=== PATIENT | female | born 1985 | race African-American/Black ===

== ENCOUNTER 2016-07-08 16:12 | Emergency (ER) ==
[2016-07-08 16:19] VITALS: BP 136/78; TEMP 98.5; BMI 40.6
--- NOTE | 2016-07-08 16:48 | ED.PDOC ---
General ED Provider: Dr. MANFRED CACERES Chief Complaint: Cough Stated Complaint: Cough; sore throat, bilateral ear pain. Time Seen by Physician: 16:30 Mode of Arrival: Walk-In Information Source: Patient [facility] and Triage Documentation Reviewed and Agree: Yes Review of Systems - Review Of Systems Constitutional: Reports: Malaise Ears, Nose, Mouth, Throat: Reports: Ear pain Respiratory: Reports: Cough Cardiac: Reports: No symptoms GI: Reports: No symptoms : Reports: No symptoms Musculoskeletal: Reports: No symptoms All Other Systems: Reviewed and Negative Past Medical History - Past Medical History Previously Healthy: Yes Endocrine: Reports: None Cardiovascular: Reports: None Respiratory: Reports: Asthma, Other (throat closes with tmp-sulf). Denies: Pneumonia (PLEURISY IN PAST) Hematological: Reports: Anemia Gastrointestinal: Reports: None Genitourinary: Reports: None Neuro/Psych: Reports: Anxiety, Depression Musculoskeletal: Reports: Other (SCOLIOSIS) Cancer: Reports: None Last Menstrual Period: ESSURE Other Pertinent Past Medical History: anemia asthma depr anx scol hives throat with tmpsulf - Surgical History General Surgical History: Reports: None - Family History Family History: Reports: Unknown - Social History Smoking Status: Former smoker Hx Substance Use: No Alcohol Screening: None Physical Exam - Physical Exam Appearance: Ill-appearing Ill-appearing: Moderate (Obvious discomfiture - sore throat - ear pain with swallowing) Re-Evaluation - Re-Evaluation Time of Re-Evaluation: 18:20 Status: Unchanged Vital Signs Stable: Yes Appearance: Other (Obviously uncomfortable; TMs reexamined - Left slightly bluish color) Skin: Warm and Dry Neuro: Alert and Oriented X3 Critical Care Note - Critical Care Note Total Time (mins): 25 Course - Course Hematology/Chemistry: 07/08/16 17:07 07/08/16 17:07 Orders, Labs, Meds: Lab Review 07/08/16 07/08/16 17:03 17:07 WBC 10.90 H RBC 4.82 Hgb 13.4 Hct 40.0 MCV 83.0 MCH 27.8 MCHC 33.5 RDW Coeff of Carlie 13.9 Plt Count 257 Immature Gran % (Auto) 0.4 Neut % (Auto) 58.7 Lymph % (Auto) 26.2 [place] % (Auto) 12.3 H Eos % (Auto) 2.1 Baso % (Auto) 0.3 Immature Gran # (Auto) 0.0 Neut # 6.4 Lymph # 2.9 [place] # 1.3 Eos # 0.2 Baso # 0.0 Sodium 140 Potassium 3.6 Chloride 106 Carbon Dioxide 24 Anion Gap 13.6 BUN 10 Creatinine 1.00 Estimated GFR (MDRD) 78.00 BUN/Creatinine Ratio 10.00 Glucose 105 Calcium 9.1 Total Bilirubin 0.22 AST 15 ALT 21 Alkaline Phosphatase 103 H Total Protein 6.9 Albumin 3.4 Globulin 3.5 Albumin/Globulin Ratio 0.97 Influenza A (Rapid) Negative Influenza B (Rapid) Negative Orders Category Date Time Status CBC W/ AUTO DIFF Stat LAB 07/08/16 17:07 Completed COMPREHENSIVE METABOLIC PANEL Stat LAB 07/08/16 17:07 Completed FLU A & B RAPID TEST [RAPID FLU A/B] Stat LAB 07/08/16 17:03 Completed MOLECULAR GROUP A STREP Stat LAB 07/08/16 17:03 Results STREP SCREEN Stat LAB 07/08/16 17:03 Results Azithromycin [Zithromax] MEDS 07/08/16 18:39 Discontinued 500 mg PO ONCE STA Ondansetron HCl/Pf [Zofran 4 mg/2 ml] MEDS 07/08/16 16:54 Discontinued 4 mg IVP ONCE STA Sodium Chloride 0.9% [Sodium Chloride] 1,000 ml MEDS 07/08/16 16:53 Discontinued IV BOLUS Medications Discontinued Medications Generic Name Dose Route Start Last Admin Trade Name Freq PRN Reason Stop Dose Admin Azithromycin 500 mg 07/08/16 18:39 07/08/16 18:48 Zithromax PO 07/08/16 18:40 500 mg ONCE STA Administration Sodium Chloride 1,000 mls @ 1,000 mls/hr 07/08/16 16:53 07/08/16 17:13 Sodium Chloride IV 07/08/16 17:52 1,000 mls/hr BOLUS STA Administration Ondansetron HCl 4 mg 07/08/16 16:54 07/08/16 17:14 Zofran 4 Mg/2 Ml IVP 07/08/16 16:55 Not Given ONCE STA reported neG RAPID STREP Vital Signs: Temp Pulse Resp BP Pulse Ox 07/08/16 16:13 98.5 F 114 H 20 136/78 98 Departure - Departure Time of Disposition: 18:47 Disposition: HOME SELF-CARE Discharge Problem: Pharyngitis Instructions: Pharyngitis (ED) Condition: Good Pt referred to PMD for follow-up: Yes (Make appointment) Additional Instructions: Follow up with primary care next week; call to make appointment. Take Azithromycin as prescribed - hold (do not take) hydroxyzine for 4 days after finishing Azithromycin. Allergies/Adverse Reactions: Allergies aspirin Adverse Reaction (Verified 07/08/16 16:19) cat dander Adverse Reaction (Verified 07/08/16 16:19) diphenhydramine HCl [From Benadryl] Adverse Reaction (Verified 07/08/16 16:19) dog dander Adverse Reaction (Verified 07/08/16 16:19) mold Adverse Reaction (Verified 07/08/16 16:19) ragweed pollen Adverse Reaction (Verified 07/08/16 16:19) Sulfa (Sulfonamide Antibiotics) Adverse Reaction (Verified 07/08/16 16:19) Home Medications: Ambulatory Orders Hydroxyzine HCl 25 mg PO BID PRN 01/18/16 Hydrocodone/Acetaminophen [[place] 5-325 Tablet] 1 tab PO Q6HR PRN #20 tablet 10/24
[2016-07-08] MEDS ORDERED: SODIUM CHLORIDE 1,000 ML IV STA (16:53)
[2016-07-08] MEDS ORDERED: ZOFRAN 4 MG/2 ML IVP STA (16:54)
[2016-07-08 17:06] LABS: BASOPHILS % (AUTO) 0.3 % (0.0-3.0); EOSINOPHILS # (AUTO) 0.2 K/ul (0.0-0.7); EOSINOPHILS % (AUTO) 2.1 % (0.0-7.0); HEMOGLOBIN 13.4 g/dl (12.0-16.0); IMMATURE GRANULOCYTE % (AUTO) 0.4 % (0.0-5.0); LYMPHOCYTES # (AUTO) 2.9 K/uL (0.60-3.4); LYMPHOCYTES % (AUTO) 26.2 (10.0-50.0); MEAN CORPUSCULAR HEMOGLOBIN 27.8 pg (27.0-31.0); MEAN CORPUSCULAR HGB CONC 33.5 (31.8-35.4); MONOCYTES # (AUTO) 1.3 K/uL (0.4-2.0); MONOCYTES % (AUTO) 12.3 (0-10); NEUTROPHILS # (AUTO) 6.4 K/ul (2.0-6.9); NEUTROPHILS % (AUTO) 58.7; PLATELET COUNT 257 10^3/uL (140-440); RED BLOOD COUNT 4.82 10^6/ul (4.20-5.40)
[2016-07-08 17:17] LABS: FLU INTERNAL QC INTERNAL QC VALID; RAPID FLU A NEGATIVE (NEGATIVE); RAPID FLU B NEGATIVE (NEGATIVE)
[2016-07-08 17:26] LABS: ALBUMIN 3.4 g/dL (3.4-5.0); ALBUMIN/GLOBULIN RATIO 0.97; ANION GAP 13.6; BILIRUBIN,TOTAL 0.22 mg/dL (0.00-1.20); CALCIUM 9.1 mg/dL (8.2-10.2); POTASSIUM 3.6 mmol/L (3.5-5.10); TOTAL PROTEIN 6.9 g/dL (6.4-8.2)
[2016-07-08] MEDS ORDERED: ZITHROMAX PO STA (18:39)
== END 2016-07-08 18:54 | disposition home or self-care (01) ==
LOC: ED 16:12
DX: J02.9 Acute pharyngitis, unspecified (principal)
CPT/HCPCS: 36415; 80053; 85025; 87651; 87804; 87880; 96360; 99283

== ENCOUNTER 2016-08-15 16:01 | Outpatient (CLI) ==
[2016-08-15 16:34] LABS: BASOPHILS % (AUTO) 0.4 % (0.0-3.0); EOSINOPHILS # (AUTO) 0.4 K/ul (0.0-0.7); EOSINOPHILS % (AUTO) 3.6 % (0.0-7.0); HEMATOCRIT 38.9 % (37.0-47.0); HEMOGLOBIN 13.1 g/dl (12.0-16.0); IMMATURE GRANULOCYTE % (AUTO) 0.2 % (0.0-5.0); LYMPHOCYTES % (AUTO) 50.4 (10.0-50.0); MEAN CORPUSCULAR HEMOGLOBIN 28.2 pg (27.0-31.0); MEAN CORPUSCULAR HGB CONC 33.7 (31.8-35.4); MEAN CORPUSCULAR VOLUME 83.7 fl (81.0-99.0); MONOCYTES # (AUTO) 0.8 K/uL (0.4-2.0); MONOCYTES % (AUTO) 7.8 (0-10); NEUTROPHILS # (AUTO) 3.8 K/ul (2.0-6.9); NEUTROPHILS % (AUTO) 37.6; PLATELET COUNT 282 10^3/uL (140-440); RED BLOOD COUNT 4.65 10^6/ul (4.20-5.40); WHITE BLOOD COUNT 9.97 K/ul (4.6-10.2)
--- NOTE | 2016-08-15 16:41 | DI ---
EXAM: KUB HISTORY: Dysuria FINDINGS: Bowel gas pattern normal. No excessive retained fecal material. No organomegaly is sugg ested. There are no suspicious calcifications. Bony structures are within normal limits for age. IMPRESSION: Normal bowel gas pattern. No suspicious calcifications.
[2016-08-15 16:52] LABS: ALBUMIN 3.6 g/dL (3.4-5.0); ALBUMIN/GLOBULIN RATIO 1.09; ANION GAP 10.3; BILIRUBIN,TOTAL 0.26 mg/dL (0.00-1.20); BUN/CREATININE RATIO 13.82; CREATININE 1.23 mg/dL (0.60-1.30); POTASSIUM 4.3 mmol/L (3.5-5.10); TOTAL PROTEIN 6.9 g/dL (6.4-8.2)
== END 2016-08-15 16:02 | disposition home or self-care (01) ==
LOC: RAD 16:01
PROVIDERS: ATTEND Nurse Practitioner Family
DX: R30.0 Dysuria (principal); M54.9 Dorsalgia, unspecified
CPT/HCPCS: 36415; 80053; 82150; 83690; 85025

== ENCOUNTER 2016-08-17 11:11 | Outpatient (CLI) ==
--- NOTE | 2016-08-17 12:33 | DI ---
Examination: Five radiographic images of the lumbar spine. Comparison: 11/21/2011. Reason for study: Low back pain. FINDINGS: No acute fracture or listhesis. The vertebral bodies and intervertebral body disc space heights are well maintained. There is maintenance of the lumbar lordotic curve. Metallic densities in the pelvis are consistent with Essure device placement. Impression: No acute fracture or listhesis is seen within the lumbar spine.
== END 2016-08-17 11:12 | disposition home or self-care (01) ==
LOC: RAD 11:11
PROVIDERS: ATTEND Nurse Practitioner Family
DX: M54.5 Low back pain (principal)

== ENCOUNTER 2016-08-21 16:38 | Emergency (ER) ==
[2016-08-21 16:42] VITALS: BP 152/89; TEMP 97.9; BMI 42.4
--- NOTE | 2016-08-21 17:23 | ED.PDOC ---
General ED Provider: Dr. YESI DE LEON Chief Complaint: Rash Stated Complaint: rash right elbow pain Time Seen by Physician: 16:40 (rash and pain right elbow pain) Mode of Arrival: Walk-In Information Source: Patient Exam Limitations: No limitations [facility] Documentation Reviewed and Agree: Yes (BRADEN PRESENT AT ALL TIMES ) Musculoskeletal Complaint Exam - Upper Extremity Complaint/Exam Location of Pain: Reports: Right, Elbow, Forearm Mechanism of Injury: Reports: No known trauma Onset/Duration: rash and pain elbow Symptoms Are: Still present Timing: Constant Episodes Lasting: Hours Initial Severity: Moderate Current Severity: Moderate Character: Reports: Aching, Spasmodic, Stiffness Aggravating: Reports: None Alleviating: Reports: None Related History: Reports: Similar episode Non-Orthopedic Risk Factors: Reports: None DVT Risk Factors: Reports: None Septic Arthritis Risk Factors: Reports: None Related Surgical History: Reports: None Review of Systems - Review Of Systems Constitutional: Reports: No symptoms Eyes: Reports: No symptoms Ears, Nose, Mouth, Throat: Reports: No symptoms Respiratory: Reports: No symptoms Cardiac: Reports: No symptoms GI: Reports: No symptoms : Reports: No symptoms Musculoskeletal: Reports: Other (elbow pain) Skin: Reports: Rash (limited to elbow right) Neurological: Reports: No symptoms Endocrine: Reports: No symptoms Hematologic/Lymphatic: Reports: No symptoms All Other Systems: Reviewed and Negative Past Medical History - Past Medical History Previously Healthy: Yes Endocrine: Reports: None Cardiovascular: Reports: None Respiratory: Reports: Asthma, Other (throat closes with tmp-sulf). Denies: Pneumonia (PLEURISY IN PAST) Hematological: Reports: Anemia Gastrointestinal: Reports: None Genitourinary: Reports: None Neuro/Psych: Reports: Anxiety, Depression Musculoskeletal: Reports: Other (SCOLIOSIS) Cancer: Reports: None Last Menstrual Period: esure Other Pertinent Past Medical History: anemia asthma depr anx scol hives throat with tmpsulf - Surgical History General Surgical History: Reports: None - Family History Family History: Reports: Unknown - Social History Smoking Status: Former smoker Hx Substance Use: No Alcohol Screening: None Physical Exam - Physical Exam Appearance: Well-appearing, No pain distress, Well-nourished Eyes: NOAM, EOMI, Conjunctiva clear ENT: Ears normal, Nose normal, Oropharynx normal Respiratory: Airway patent, Breath sounds clear, Breath sounds equal, Respirations nonlabored Cardiovascular: RRR, Pulses normal, No rub, No murmur GI/: Soft, Nontender, No masses, Bowel sounds normal, No Organomegaly Musculoskeletal: Normal strength, ROM intact, No edema, No calf tenderness Skin: Warm, Dry (5cm rash right elbow) Neurological: Sensation intact, Motor intact, Reflexes intact, Cranial nerves intact, Alert, Oriented Psychiatric: Affect appropriate, Mood appropriate Critical Care Note - Critical Care Note Total Time (mins): 0 Course - Course Vital Signs: Temp Pulse Resp BP Pulse Ox 08/21/16 16:39 97.9 F 98 H 18 152/89 H 99 Departure - Departure Time of Disposition: 17:24 Disposition: HOME SELF-CARE Discharge Problem: Elbow pain, right Instructions: Arthralgia (ED) Condition: Good Pt referred to PMD for follow-up: Yes (retrurn in am for further evaluation by Sonja) Additional Instructions: Please call your Family Physician as soon as possible to schedule a follow-up appointment.RETURN IN AM Allergies/Adverse Reactions: Allergies aspirin Adverse Reaction (Verified 08/21/16 16:43) cat dander Adverse Reaction (Verified 08/21/16 16:43) diphenhydramine HCl [From Benadryl] Adverse Reaction (Verified 08/21/16 16:43) Anaphylaxis dog dander Adverse Reaction (Verified 08/21/16 16:43) mold Adverse Reaction (Verified 08/21/16 16:43) ragweed pollen Adverse Reaction (Verified 08/21/16 16:43) Sulfa (Sulfonamide Antibiotics) Adverse Reaction (Verified 08/21/16 16:43) Home Medications: Ambulatory Orders Mv,Iron,Min/Folic Acid/Biotin [Hair, Skin & Nails Softgel] 66.7 mcg PO DAILY
== END 2016-08-21 17:30 | disposition home or self-care (01) ==
LOC: ED 16:38
DX: M25.521 Pain in right elbow (principal); R21 Rash and other nonspecific skin eruption
CPT/HCPCS: 99282

== ENCOUNTER 2016-08-22 09:55 | Emergency (ER) ==
[2016-08-22 10:09] VITALS: BP 132/75; TEMP 96.9; BMI 42.1
[2016-08-22 10:35] LABS: BASOPHILS % (AUTO) 0.2 % (0.0-3.0); EOSINOPHILS # (AUTO) 0.4 K/ul (0.0-0.7); EOSINOPHILS % (AUTO) 4.5 % (0.0-7.0); HEMOGLOBIN 12.7 g/dl (12.0-16.0); IMMATURE GRANULOCYTE % (AUTO) 0.2 % (0.0-5.0); LYMPHOCYTES # (AUTO) 3.8 K/uL (0.60-3.4); MEAN CORPUSCULAR HEMOGLOBIN 27.4 pg (27.0-31.0); MEAN CORPUSCULAR HGB CONC 32.6 (31.8-35.4); MEAN CORPUSCULAR VOLUME 84.2 fl (81.0-99.0); MONOCYTES # (AUTO) 0.8 K/uL (0.4-2.0); MONOCYTES % (AUTO) 9.7 (0-10); NEUTROPHILS # (AUTO) 3.2 K/ul (2.0-6.9); NEUTROPHILS % (AUTO) 39.4; PLATELET COUNT 256 10^3/uL (140-440); RED BLOOD COUNT 4.63 10^6/ul (4.20-5.40); WHITE BLOOD COUNT 8.16 K/ul (4.6-10.2)
[2016-08-22 10:54] LABS: ALBUMIN 3.5 g/dL (3.4-5.0); ALBUMIN/GLOBULIN RATIO 1.06; BILIRUBIN,TOTAL 0.43 mg/dL (0.00-1.20); BUN/CREATININE RATIO 14.63; CALCIUM 8.8 mg/dL (8.2-10.2); CREATININE 0.82 mg/dL (0.60-1.30); TOTAL PROTEIN 6.8 g/dL (6.4-8.2)
--- NOTE | 2016-08-22 11:12 | US ---
EXAM: The upper extremity venous duplex ultrasound HISTORY: Pain/swelling of right arm COMPARISON: None available TECHNIQUE: Right upper extremity venous duplex ultrasound FINDINGS: The internal jugular vein is patent. The subclavian, axillary, brachial, cephalic, basilic, radial and ulnar veins are patent and compressible. IMPRESSION: No evidence of right upper extremity DVT.
--- NOTE | 2016-08-22 11:43 | ED.PDOC ---
General ED Provider: Dr. YESI DE LEON Chief Complaint: Non-specific Complaint Stated Complaint: right arm intermittent rash and pain Time Seen by Physician: 10:00 (returns per instruction from 24 hrs ago visit) Mode of Arrival: Walk-In Information Source: Patient Nursing and Triage Documentation Reviewed and Agree: Yes Skin Complaint Exam - Skin/Soft Tissue Complaint/Exam Onset/Duration: rash right arm pain 2 days rash entirely d/c today Symptoms Are: Resolved Timing: Intermittent Initial Severity: Mild Current Severity: None Character: Denies: Redness, Swelling, Raised, Painful Aggravating: Reports: None Alleviating: Reports: None Associated Signs and Symptoms: Denies: Fever, Chills, Itching, Drainage, Bruising, Tenderness, Red streaks, Joint swelling Related History: Reports: Similar episode Recent Exposure to Others w/Similar Symptoms: No Skin Findings: Present: Other (erythema nodosom) Review of Systems - Review Of Systems Constitutional: Reports: No symptoms Eyes: Reports: No symptoms Ears, Nose, Mouth, Throat: Reports: No symptoms Respiratory: Reports: No symptoms Cardiac: Reports: No symptoms GI: Reports: No symptoms : Reports: No symptoms Musculoskeletal: Reports: No symptoms Skin: Reports: Other (rash right orearm pain aslo) Neurological: Reports: No symptoms Endocrine: Reports: No symptoms Hematologic/Lymphatic: Reports: No symptoms All Other Systems: Reviewed and Negative Past Medical History - Past Medical History Previously Healthy: Yes Endocrine: Reports: None Cardiovascular: Reports: None Respiratory: Reports: Asthma, Other (throat closes with tmp-sulf). Denies: Pneumonia (PLEURISY IN PAST) Hematological: Reports: Anemia Gastrointestinal: Reports: None Genitourinary: Reports: None Neuro/Psych: Reports: Anxiety, Depression Musculoskeletal: Reports: Other (SCOLIOSIS) Cancer: Reports: None Last Menstrual Period: unknown Other Pertinent Past Medical History: anemia asthma depr anx scol hives throat with tmpsulf - Surgical History General Surgical History: Reports: None - Family History Family History: Reports: Unknown - Social History Smoking Status: Former smoker Hx Substance Use: No Alcohol Screening: None Physical Exam - Physical Exam Appearance: Well-appearing, No pain distress, Well-nourished Eyes: NOAM, EOMI, Conjunctiva clear ENT: Ears normal, Nose normal, Oropharynx normal Respiratory: Airway patent, Breath sounds clear, Breath sounds equal, Respirations nonlabored Cardiovascular: RRR, Pulses normal, No rub, No murmur GI/: Soft, Nontender, No masses, Bowel sounds normal, No Organomegaly Musculoskeletal: Normal strength, ROM intact, No edema, No calf tenderness Skin: Warm, Dry, Normal color Neurological: Sensation intact, Motor intact, Reflexes intact, Cranial nerves intact, Alert, Oriented Psychiatric: Affect appropriate, Mood appropriate Critical Care Note - Critical Care Note Total Time (mins): 0 Course - Course Hematology/Chemistry: 08/22/16 10:05 08/22/16 10:05 Orders, Labs, Meds: Lab Review 08/22/16 10:05 WBC 8.16 RBC 4.63 Hgb 12.7 Hct 39.0 MCV 84.2 MCH 27.4 MCHC 32.6 RDW Coeff of Carlie 14.3 Plt Count 256 Immature Gran % (Auto) 0.2 Neut % (Auto) 39.4 Lymph % (Auto) 46.0 [place] % (Auto) 9.7 Eos % (Auto) 4.5 Baso % (Auto) 0.2 Immature Gran # (Auto) 0.0 Neut # 3.2 Lymph # 3.8 H [place] # 0.8 Eos # 0.4 Baso # 0.0 Sodium 138 Potassium 4.0 Chloride 107 Carbon Dioxide 25 Anion Gap 10.0 BUN 12 Creatinine 0.82 Estimated GFR (MDRD) 98.00 BUN/Creatinine Ratio 14.63 Glucose 81 Calcium 8.8 Total Bilirubin 0.43 AST 19 ALT 22 Alkaline Phosphatase 90 Total Protein 6.8 Albumin 3.5 Globulin 3.3 Albumin/Globulin Ratio 1.06 Orders Category Date Time Status BLOOD CULTURE Stat LAB 08/22/16 10:05 Received CBC W/ AUTO DIFF Stat LAB 08/22/16 10:05 Completed COMPREHENSIVE METABOLIC PANEL Stat LAB 08/22/16 10:05 Completed U/S VENOUS SCAN RT. ARM Stat RADS 08/22/16 10:06 Completed Vital Signs: Temp Pulse Resp BP Pulse Ox 08/22/16 09:56 96.9 F L 91 H 20 132/75 97 Departure - Departure Time of Disposition: 11:44 Disposition: HOME SELF-CARE Discharge Problem: Pain in right arm Instructions: Arm Pain (ED) Condition: Good Pt referred to PMD for follow-up: No Additional Instructions: Please call your Family Physician as soon as possible to schedule a follow-up appointment. Allergies/Adverse Reactions: Allergies aspirin Adverse Reaction (Verified 08/22/16 10:09) cat dander Adverse Reaction (Verified 08/22/16 10:09) diphenhydramine HCl [From Benadryl] Adverse Reaction (Verified 08/22/16 10:09) Anaphylaxis dog dander Adverse Reaction (Verified 08/22/16 10:09) mold Adverse Reaction (Verified 08/22/16 10:09) ragweed pollen Adverse Reaction (Verified 08/22/16 10:09) Sulfa (Sulfonamide Antibiotics) Adverse Reaction (Verified 08/22/16 10:09) Home Medications: Ambulatory Orders Mv,Iron,Min/Folic Acid/Biotin [Hair, Skin & Nails Softgel] 66.7 mcg PO DAILY Hydrocodone/Acetaminophen [[place] 5-325 Tablet] 1 each PO Q6HR PRN #7 tablet
== END 2016-08-22 12:04 | disposition home or self-care (01) ==
LOC: ED 09:55
DX: M79.601 Pain in right arm (principal); R21 Rash and other nonspecific skin eruption
CPT/HCPCS: 36415; 80053; 85025; 87040; 99283

== ENCOUNTER 2016-12-28 13:43 | Outpatient (CLI) ==
[2016-12-28 14:07] LABS: BILIRUBIN,URINE Negative (NEGATIVE); KETONES,URINE Negative (NEGATIVE); LEUKOCYTE ESTERASE ,URINE Negative (NEGATIVE); NITRITE,URINE Negative (NEGATIVE); PROTEIN,URINE 2+ (NEGATIVE); URINE, BLOOD 3+ (NEGATIVE)
[2016-12-28 14:09] LABS: BASOPHILS % (AUTO) 0.5 % (0.0-3.0); EOSINOPHILS # (AUTO) 0.3 K/ul (0.0-0.7); HEMATOCRIT 38.4 % (37.0-47.0); HEMOGLOBIN 13.1 g/dl (12.0-16.0); IMMATURE GRANULOCYTE % (AUTO) 0.2 % (0.0-5.0); LYMPHOCYTES # (AUTO) 3.3 K/uL (0.60-3.4); LYMPHOCYTES % (AUTO) 57.1 (10.0-50.0); MEAN CORPUSCULAR HEMOGLOBIN 27.9 pg (27.0-31.0); MEAN CORPUSCULAR HGB CONC 34.1 (31.8-35.4); MEAN CORPUSCULAR VOLUME 81.7 fl (81.0-99.0); MONOCYTES # (AUTO) 0.5 K/uL (0.4-2.0); MONOCYTES % (AUTO) 8.3 (0-10); NEUTROPHILS # (AUTO) 1.7 K/ul (2.0-6.9); NEUTROPHILS % (AUTO) 28.9; PLATELET COUNT 272 10^3/uL (140-440); WHITE BLOOD COUNT 5.81 K/ul (4.6-10.2)
[2016-12-28 14:14] LABS: ADD URINE MICROSCOPIC YES
[2016-12-28 14:19] LABS: BACTERIA,URINE 1+ (NOT PRESENT); H. PYLORI ANTIBODY NEGATIVE (NEGATIVE); H.PYLORI INTERNAL QC INTERNAL QC VALID
[2016-12-28 14:20] LABS: ALBUMIN 3.4 g/dL (3.4-5.0); ALBUMIN/GLOBULIN RATIO 0.94; ANION GAP 15.1; BILIRUBIN,TOTAL 0.35 mg/dL (0.00-1.20); BUN/CREATININE RATIO 15.9; CALCIUM 8.5 mg/dL (8.2-10.2); CREATININE 0.88 mg/dL (0.60-1.30); POTASSIUM 4.1 mmol/L (3.5-5.10); SERUM PREGNANCY INTERNAL QC INTERNAL QC VALID
--- NOTE | 2016-12-28 14:25 | CT ---
EXAM: CT of the abdomen pelvis without contrast History: Abdominal pain. Technique: Multiplanar CT images through the abdomen pelvis were obtained without the administratio n of IV contrast Findings: Lung bases are clear. No acute osseous abnormalities. No renal stones and no hydronephrosis. The visualized appendix is not dilated or inflamed. No disc rete gallstones identified by CT. No focal liver or splenic lesions. No peripancreatic inflammatio n. Adrenal glands are unremarkable. No bowel obstruction. Bilateral fallopian tube occlusion angely leigh. Bladder is not well distended. No perirectal inflammation. No free air and no ascites. Impression: No acute intra-abdominal or pelvic process.
== END 2016-12-28 13:44 | disposition home or self-care (01) ==
LOC: RAD 13:43
PROVIDERS: ATTEND Nurse Practitioner Family
DX: R10.9 Unspecified abdominal pain (principal); R10.819 Abdominal tenderness, unspecified site; R19.4 Change in bowel habit
CPT/HCPCS: 36415; 80053; 81001; 84703; 85025; 86677; 87015; 87045; 87086; 87899

== ENCOUNTER 2017-02-15 08:03 | Emergency (ER) ==
[2017-02-15 08:16] VITALS: BP 146/90; TEMP 98.3; BMI 40.9
[2017-02-15] MEDS ORDERED: TORADOL IM STA (08:33)
== END 2017-02-15 09:22 | disposition home or self-care (01) ==
LOC: ED 08:03
DX: M54.40 Lumbago with sciatica, unspecified side (principal); S39.012A Strain of muscle, fascia and tendon of lower back, initial encounter
CPT/HCPCS: 96372; 99283

== ENCOUNTER 2017-02-19 10:36 | Outpatient (CLI) ==
[2017-02-19 10:49] LABS: BILIRUBIN,URINE Negative (NEGATIVE); KETONES,URINE Negative (NEGATIVE); LEUKOCYTE ESTERASE ,URINE Negative (NEGATIVE); NITRITE,URINE Negative (NEGATIVE); PROTEIN,URINE 1+ (NEGATIVE); URINE, BLOOD 3+ (NEGATIVE)
[2017-02-19 10:54] LABS: ADD URINE MICROSCOPIC YES
[2017-02-19 10:55] LABS: BACTERIA,URINE TRACE (NOT PRESENT)
--- NOTE | 2017-02-19 11:33 | DI ---
Exam: Five x-rays of the lumbar spine. Comparison: 08/17/2016. CT abdomen pelvis performed on 12/28/2016. Reason for exam: Lumbago with sciatica. FINDINGS: No acute fracture or listhesis. The vertebral bodies and intervertebral body disc space h eights are well maintained. There is a normal appearing lumbar lordotic curve. Two Essure devices a re seen within the pelvis. No significant arthrosis. Impression: No acute fracture or listhesis in the lumbar spine
== END 2017-02-19 10:37 | disposition home or self-care (01) ==
LOC: LAB 10:36
PROVIDERS: ATTEND Nurse Practitioner Family
DX: M54.42 Lumbago with sciatica, left side (principal); M54.41 Lumbago with sciatica, right side
CPT/HCPCS: 81001; 87086

== ENCOUNTER 2017-02-28 08:23 | Outpatient (CLI) ==
--- NOTE | 2017-02-28 20:56 | MRI ---
EXAM: Lumbar spine MRI without contrast. HISTORY: Lumbago with left sciatica. COMPARISON: Lumbar spine radiographs 02/19/[address] abdomen and pelvis 12/28/2016. TECHNIQUE: Multiplanar, multisequence MR images were acquired of the lumbar spine without contrast. FINDINGS: Five non-rib bearing lumbar vertebra are present. There is minor mid lumbar dextroscolios is. The lumbar vertebra are normal in height and intrinsic bone marrow signal. The intervertebral d iscs are normal in height and without desiccation. Conus medullaris ends at L1-2 and has normal conf iguration and signal intensity. The partially visualized liver, spleen, adrenal glands and kidneys are unremarkable. There are no pa ravertebral masses. There is a partially visualized right adnexal cystic lesion that measures at ana st 2.5 cm in diameter. The left adnexa is incompletely visualized on the current exam. Pelvic ultras ound could better define the anatomy. T12-L1, L1-2: The intervertebral discs are normal. L2-3: There is a minimal disc bulge that is considered physiologic. There is no central canal steno sis or foraminal stenosis. L3-4: There is a minimal disc bulge that is considered physiologic and minor bilateral facet arthrop athy and mild ligamentum flavum hypertrophy. There is no central canal stenosis or foraminal stenosi s. L4-5: There is a minimal disc bulge that is considered physiologic and mild bilateral facet arthropa thy and ligamentum flavum hypertrophy. There is minor left neural foraminal stenosis. L5-S1: There is a minor disc bulge that is asymmetric posteriorly and to the right which minimally e ffaces the ventral thecal sac and contacts the anterior S1 nerves bilaterally. Mild bilateral hypert rophic facet arthropathy and ligamentum flavum hypertrophy is present. There is mild bilateral mel inal stenosis and the thecal sac is developmentally mildly small and tapers to end at mid S2. IMPRESSION: 1. No lumbar disc herniations, pars interarticularis defects or spinal stenosis. 2. Partially visualized right adnexal cystic lesion that measures at least 2.5 cm in diameter and in completely visualized left adnexa. Pelvic ultrasound could better define the anatomy.
== END 2017-02-28 08:24 | disposition home or self-care (01) ==
LOC: RAD 08:23
PROVIDERS: ATTEND Nurse Practitioner Family
DX: M54.42 Lumbago with sciatica, left side (principal)

== ENCOUNTER 2017-03-02 07:37 | Outpatient (CLI) ==
--- NOTE | 2017-03-02 08:47 | US ---
EXAM: Transvaginal pelvic ultrasound HISTORY: Right adnexal cyst/pelvic cyst on MRI. Patient with Essure device in place COMPARISON: CT abdomen pelvis 12/28/2016 and MRI lumbar spine 02/28/2017 TECHNIQUE: Transvaginal pelvic ultrasound was performed to better evaluate the structures. Limited Doppler was provided. FINDINGS: The uterus measures 8.2 x 4.0 x 4.0 cm. Heterogeneous lesions in the myometrium of the ut erus measuring 1.7 x 1.6 x 1.9 cm and 1.8 x 1.5 x 1.9 cm. The endometrium measures 0.8 cm in thickne ss. Cervix is normal in appearance. The right ovary measures 5.3 x 3.3 x 3.5 cm. There is normal color Doppler flow. Hypoechoic septated complex cyst measures 3.3 x 3.3 x 2.8 cm. The left ovary is not identified due to overlying bowel gas. Minimal free fluid in the pelvis. IMPRESSION: 1. Minimally complex thinly septated right ovarian cyst. If further evaluation is clinically indica cristina, follow-up ultrasound may be obtained in 6 weeks. 2. Heterogeneous lesions in the uterus are suggestive of uterine fibroids. 3. Nonspecific minimal free fluid in the cul-de-sac.
== END 2017-03-02 07:38 | disposition home or self-care (01) ==
LOC: RAD 07:37
PROVIDERS: ATTEND Nurse Practitioner Family
DX: N94.9 Unspecified condition associated with female genital organs and menstrual cycle (principal)

== ENCOUNTER 2017-05-04 11:00 | Outpatient (RCR) ==
--- NOTE | 2017-04-26 10:34 | RS.OPPTEV2 ---
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 She was taken off work for three days. States she went back to work until 02/12 when her back locked up. States she went back to the hospital on 02/13/17 and was taken off work. She is not currently working. States she received a letter from [employer] that they were closing her case. Prior Level of Function.....Patient was independent with: ADL's, Self Care, Work /Vocation, Caregiving, Ambulation/Mobility, Community Integration/Access Functional Limitations: Sleep, Self Care, ADL's, Reaching, Pushing, Pulling, Lifting, Carrying, Sitting, Standing, Bending, Ambulation, Community Access/ Integration Current Subjective/complaints:: Patient reports she has been using heat and cold in the shower at home to the low back. States it helps a little. She has been trying to do some stretching that she found online. Reports bending over causes increased back pain and she also has trouble maintaining her balance. Sleep is difficult. Prolonged walking will cause her to feel like her legs will go out. Reports she is only getting 3-4 hours of sleep per night. States pain is on both sides of the low back, but more on the right. She has a one year old child, who weighs around 30 pounds. States lifting him will increase her back pain. Reports her back pain depends on how much activity she does. States just performing her daily activities will cause her pain to increase. Medical History Surgical History Comments:: Essure procedure 2016, D&C 2014 Smoking Status: Current every day smoker Hx Home Medications: Citalopram, tizanidine (Zanaflex), Hydralazine,Diclofenac Patient's Goals: Her goal is to get relief of back pain. Pain Assessment - Pain Description Pain Location: low back, right>left Pain Description: States pain is not just sharp, but a combination of sensations Current Pain Intensity: 6/10 Worst Pain Intensity: not quantified Functional Outcome Measure Oswestry LBP: 68 - G Codes & Severity Modifier G Codes & Modifier: NA Source of G Code score: NA Gait - Gait Pattern Gait Comments: Patient ambulates independently without an assistive device. Demonstrates a cautious gait with slight forward flexion at the hips. - ROM Lumbar Flexion: Hand reach to patellae Sidebending to Left: Reach to Mid-thigh Sidebending to Right: Reach to Mid-thigh Comments: Lumbar extension ~50 % of normal range with reports of feeling a pinch in the upper lumbar spine. Left side bending with no increased pain. Right sidebend causes increased pressure in the low back. Lower trunk rotation causes increased pain in low back. Reports more pain with lower trunk rotation to her right. Hip flexion above 80-90 degrees in sitting or supine, causes increased pain. - Strength Trunk Rotation: 4 Good Comments: Bilateral LE strength generally 4/5 with reports of pain when MMT hips and knees. - Special Tests SLR Test: Positive Left, Positive Right Seated Dural Stretch Test: Negative Left, Positive Right SI Joint Compression: Negative SI Joint Distraction: Negative Comments: Unable to perform FLORA's test due to pain with hip ROM. Palpation Comments:: Patient reports no tenderness with palpation throughout the lumbar spine. Patient withdrawals with moderate pressure of the Right SI joint and shows slight withdrawal with palpation to the left SI joint. Demonstrates minimal muscle guarding along the lumbar paraspinals. Sensation - Sensation Right Lower Extremity: Intact/Normal Left Lower Extremity: Intact/Normal Additional Comments: Additional Comments: Right SLR to 30-35 degrees in supine. Left SLR to 40-45 degrees. - Treatment Modality: Ultrasound Parameters/Method Applied: 1.6 w/cm2 continuous X 12 mins to lumbar paraspinals , more ephasis on the right lumbar/SI region. Patient Position: Left Sidelying Interventions - Exercise/Activities/Manual Therapy Exercises/Activities: No exercises given today. Manual Therapy: NA - Charges Total Direct Minutes: 50 mins Total Treatment Time: 50 mins Procedures billed for this date of service:: EVAL medium, US Short Term Goals Goal #1: Tenderness to right SI region decreased to minimal. Goal to be met by: 05/09/17 Goal #2: SLR bilaterally to 45-50 degrees. Goal to be met by: 05/09/17 Goal #3: Lumbar AROM WFL's with minimal discomfort. Goal to be met by: 05/09/17 Goal #4: Pt independent and compliant with initial HEP. 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 Goal to be met by: 06/09/17 Goal #2: Score on Oswestry LBP scale improved to 38. Goal to be met by: 06/09/17 Goal #3: Pt will tolerate all daily activities with minimal to no back/LE pain. Goal to be met by: 06/09/17 Goal #4: Pt able to sleep 6 hours without interruption from back pain. Goal to be met by: 06/09/17 Plan - Treatment to be Provided Procedures: Therapeutic Exercises, Therapeutic Activity, Patient Education Modalities: Electrical Stimulation, Ultrasound/Phonophoresis, Cryotherapy, Hot Packs - Treatment Plan Frequency: 3 X week Duration: 6 weeks ORDER # VISITS AND/OR THROUGH DATE: 06/09/17 - Treatment Code (1) Low back pain Code(s): M54.5 - LOW BACK PAIN Qualifiers: Chronicity: chronic Back pain laterality: bilateral Sciatica presence: unspecified whether sciatica present Qualified Code(s): M54.5 - Low back pain ; G89.29 - Other chronic pain; G89.29 - Other chronic pain
--- NOTE | 2017-04-27 11:42 | RS.OPPTDN ---
Subjective Date of Note: 04/27/17 Visit #: 3 Date of Evaluation: 04/25/17 Payer Source: Medicaid Treatment Diagnosis: Low back pain Current Subjective/complaints:: Patient reports pain is 4/10 because she took her medication this morning. States she is taking an anti-inflammatory and a muscle relaxer. Pain Assessment - Pain Description Pain Location: Right lowback, S-I, and gluts Current Pain Intensity: 4/10 - Treatment Modality: Ultrasound Parameters/Method Applied: [id number] at 1.5w/cm2 to the right lower lumbar paraspinals and S-I joint area prior to EX. Patient Position: Left Sidelying - Heat/Cryotherapy Treatment: Hot Pack ([id number] to the lowback prior to US and EX. Patient in sitting. ) Interventions - Exercise/Activities/Manual Therapy Exercises/Activities: [id number] Assisted stretching of the bilateral hamstrings, SKTC, LTR, and piriformis. Patient given copies of HEP. Total minutes of Exercise: 12mins Manual Therapy: NA HOME EXERCISE PROGRAM: Stretching of the bilateral hamstrings, SKTC, and piriformis - Charges Total Direct Minutes: 24mins Total Treatment Time: 45mins Procedures billed for this date of service:: HP, US, EX Assessment: Patient able to start gentle stretching in HEP. She appears to be motivated to progress. Patient Education: Education of diagnosis, Body/Joint mechanics, Home Exercise Program, Home Safety, Activity Modification Comments: Patient education of dx, body mechanics, HEP, and safety with ADL's. Patient demonstrates compliance with HEP?: Yes Short Term Goals Goal #1: Tenderness to right SI region decreased to minimal. Goal to be met by: 05/09/17 Progress towards Goal:: Progressing Goal #2: SLR bilaterally to 45-50 degrees. Goal to be met by: 05/09/17 Goal #3: Lumbar AROM WFL's with minimal discomfort. Goal to be met by: 05/09/17 Progress towards Goal:: Progressing Goal #4: Pt independent and compliant with initial HEP. Goal to be met by: 05/09/17 Progress towards Goal:: Progressing Longterm Goals Goal #1: Pt knows HEP and to continue ex's to maintain functional level at D/C. Goal to be met by: 06/09/17 Goal #2: Score on Oswestry LBP scale improved to 38. Goal to be met by: 06/09/17 Goal #3: Pt will tolerate all daily activities with minimal to no back/LE pain. Goal to be met by: 06/09/17 Goal #4: Pt able to sleep 6 hours without interruption from back pain. Goal to be met by: 06/09/17 Plan PLAN OF CARE EXPIRES ON:: 06/09/17 ORDER # VISITS AND/OR THROUGH DATE: 06/09/17 PLAN: Continue modalities and progress exercise to reduce pain and increase functional activity level to return to work.
--- NOTE | 2017-05-01 13:54 | RS.OPPTDN ---
Subjective Date of Note: 05/01/17 Visit #: 3 Date of Evaluation: 04/25/17 Payer Source: Medicaid Treatment Diagnosis: Low back pain Current Subjective/complaints:: Patient reports back pain is better and she has been doing her HEP. Pain Assessment - Pain Description Pain Location: LB and right S-I Current Pain Intensity: 2-3/10 - Treatment Modality: Ultrasound Parameters/Method Applied: [id number] at 1.5w/cm2 to the right lower lumbar paraspinals and S-I joint prior to EX. Patient Position: Left Sidelying - Heat/Cryotherapy Treatment: Hot Pack ([id number] to the lowback and hips prior to US and EX. Patient in sitting. ) Interventions - Exercise/Activities/Manual Therapy Exercises/Activities: [id number] Assisted stretching of the bilateral hamstrings, SKTC, LTR, and piriformis. Began isometric hip flexion and isometric hip add. Patient given copies of new exercises. Total minutes of Exercise: 14mins Manual Therapy: NA HOME EXERCISE PROGRAM: Stretching of the bilateral hamstrings, SKTC, and piriformis. Isometric hip add and isometric hip flexion. - Charges Total Direct Minutes: 24mins Total Treatment Time: 45mins Procedures billed for this date of service:: HP, US, EX Assessment: Patient progressing with exercise and with reports of reduction in pain. Patient Education: Home Exercise Program Patient demonstrates compliance with HEP?: Yes Short Term Goals Goal #1: Tenderness to right SI region decreased to minimal. Goal to be met by: 05/09/17 Progress towards Goal:: Progressing Goal #2: SLR bilaterally to 45-50 degrees. Goal to be met by: 05/09/17 Goal #3: Lumbar AROM WFL's with minimal discomfort. Goal to be met by: 05/09/17 Progress towards Goal:: Progressing Goal #4: Pt independent and compliant with initial HEP. 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 Goal to be met by: 06/09/17 Goal #2: Score on Oswestry LBP scale improved to 38. Goal to be met by: 06/09/17 Goal #3: Pt will tolerate all daily activities with minimal to no back/LE pain. Goal to be met by: 06/09/17 Progress towards goal: Progressing Goal #4: Pt able to sleep 6 hours without interruption from back pain. Goal to be met by: 06/09/17 Plan PLAN OF CARE EXPIRES ON:: 06/09/17 ORDER # VISITS AND/OR THROUGH DATE: 06/09/17 PLAN: Continue modalites and progress exercise to reduce pain and return patient to PLOF.
--- NOTE | 2017-05-04 13:20 | RS.OPPTDN ---
Subjective Date of Note: 05/04/17 Visit #: 4 Date of Evaluation: 04/25/17 Payer Source: Medicaid Treatment Diagnosis: Low back pain Current Subjective/complaints:: Patient reports back pain is better, but she has disomfort at the left mid lumbar parspinals. States she is working on HEP. Pain Assessment - Pain Description Pain Location: LB and right S-I Pain Description: Tightness, Aching Pain Description: muscle tightness Current Pain Intensity: mild - Treatment Modality: Ultrasound Parameters/Method Applied: [id number] at 1.5w/cm2 to the bilateral lumbar paraspinals and S-I joint prior to EX. Patient Position: Right Sidelying - Heat/Cryotherapy Treatment: Hot Pack ([id number] to the lowback prior to US and EX. Patient in sitting. ) Interventions - Exercise/Activities/Manual Therapy Exercises/Activities: [id number] Assisted stretching of the bilateral hamstrings, SKTC, LTR, and piriformis. Isometric hip flexion and isometric hip add. Increased bridging to 10 seconds. Total minutes of Exercise: 15mins Manual Therapy: NA HOME EXERCISE PROGRAM: Stretching of the bilateral hamstrings, SKTC, and piriformis. Isometric hip add and isometric hip flexion. - Charges Total Direct Minutes: 27mins Total Treatment Time: 47mins Procedures billed for this date of service:: HP, US, EX Assessment: Patient reporting progress with intensity of pain. Muscle tension in the left mid paraspinals may be due to pelvic realignment. Patient Education: Home Exercise Program Patient demonstrates compliance with HEP?: Yes Short Term Goals Goal #1: Tenderness to right SI region decreased to minimal. Goal to be met by: 05/09/17 Progress towards Goal:: Progressing Goal #2: SLR bilaterally to 45-50 degrees. Goal to be met by: 05/09/17 Goal #3: Lumbar AROM WFL's with minimal discomfort. Goal to be met by: 05/09/17 Progress towards Goal:: Progressing Goal #4: Pt independent and compliant with initial HEP. Goal to be met by: 05/09/17 Progress towards Goal:: Met Usp Goals Goal #1: Pt knows HEP and to continue ex's to maintain functional level at D/C. Goal to be met by: 06/09/17 Goal #2: Score on Oswestry LBP scale improved to 38. Goal to be met by: 06/09/17 Goal #3: Pt will tolerate all daily activities with minimal to no back/LE pain. Goal to be met by: 06/09/17 Progress towards goal: Progressing Goal #4: Pt able to sleep 6 hours without interruption from back pain. Goal to be met by: 06/09/17 Plan PLAN OF CARE EXPIRES ON:: 06/09/17 ORDER # VISITS AND/OR THROUGH DATE: 06/09/17 PLAN: Progress trunk stability exercise to promote pelvic alignment, reduce pain and increase functional activity level.
== END 2017-05-10 ==
PROVIDERS: ATTEND Nurse Practitioner
DX: M54.5 Low back pain (principal); G89.29 Other chronic pain

== ENCOUNTER 2017-05-18 14:00 | Outpatient (RCR) ==
[2017-03-02 07:40] VITALS: BMI 40.9
--- NOTE | 2017-05-11 15:28 | RS.OPPTDN ---
Subjective Date of Note: 05/11/17 Visit #: 5 Date of Evaluation: 04/25/17 Payer Source: Medicaid Treatment Diagnosis: Low back pain Current Subjective/complaints:: Patient reports she missed her last appointment due to being sick. She reports she did not call because she did not have a phone. She reports she feels she is doing much better and feels she will be released to return to work after follow-up appointment with her physician. Pain Assessment - Pain Description Pain Location: lowback and right lateral gluteal area Pain Description: Dull, Aching Current Pain Intensity: 0-1/10 Worst Pain Intensity: 3-4/10 prior to treatment and exercise - Treatment Modality: Ultrasound Parameters/Method Applied: [id number] at 1.5w/cm2 to the bilateral lumbar paraspinals and right upper gluteal area. Patient Position: Left Sidelying - Heat/Cryotherapy Treatment: Hot Pack ([id number] to the lowback and hips prior to US and EX. patient in sitting. ) Interventions - Exercise/Activities/Manual Therapy Exercises/Activities: [id number] Assisted stretching of the bilateral hamstrings, SKTC, LTR, and piriformis. Isometric hip flexion and isometric hip add. Bridging. Green theraband for bilateral hip abduction. Blue theraband for scapular retraction. Patient education on safe lifting. Total minutes of Exercise: 15mins Manual Therapy: NA HOME EXERCISE PROGRAM: Stretching of the bilateral hamstrings, SKTC, and piriformis. Isometric hip add and isometric hip flexion. Green tband hip abd in hook-lying. Blue tband scap retraction. - Charges Timed Code Treatment Minutes: 27mins Total Treatment Time: 50mins Procedures billed for this date of service:: HP, US, EX Assessment: Patient prgogressing with exercise and reports of reduction in pain. Will need to review patient education of safe lifting. Patient Education: Home Exercise Program Patient demonstrates compliance with HEP?: Yes Short Term Goals Goal #1: Tenderness to right SI region decreased to minimal. Goal to be met by: 05/09/17 Progress towards Goal:: Met Goal #2: SLR bilaterally to 45-50 degrees. Goal to be met by: 05/09/17 Progress towards Goal:: Met Goal #3: Lumbar AROM WFL's with minimal discomfort. Goal to be met by: 05/09/17 Progress towards Goal:: Progressing Goal #4: Pt independent and compliant with initial HEP. 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 Goal to be met by: 06/09/17 Goal #2: Score on Oswestry LBP scale improved to 38. Goal to be met by: 06/09/17 Goal #3: Pt will tolerate all daily activities with minimal to no back/LE pain. Goal to be met by: 06/09/17 Progress towards goal: Met Goal #4: Pt able to sleep 6 hours without interruption from back pain. Goal to be met by: 06/09/17 Progress towards goal: Progressing Plan PLAN OF CARE EXPIRES ON:: 06/09/17 ORDER # VISITS AND/OR THROUGH DATE: 06/09/17 PLAN: Continue progression of strengthening and stability exercise and finalize body mechanics and safe lifting education.
--- NOTE | 2017-05-16 16:07 | RS.CXNS ---
Date of scheduled appointment: 05/16/17 Type: Cancel (Patient called to cancel. Reshceduled for Sunday.)
--- NOTE | 2017-05-18 15:45 | RS.OPPTDN ---
Subjective Date of Note: 05/18/17 Visit #: 6 Date of Evaluation: 04/25/17 Payer Source: Medicaid Treatment Diagnosis: Low back pain Current Subjective/complaints:: Patient reports she is doing much better. She has mild discomfort across the lowback but feels like she can perform most daily activities and may be ready to return to work. She states she will continue HEP. - Treatment Modality: Ultrasound Parameters/Method Applied: [id number] 1.5w/cm2 to the bilateral lumbar paraspinals with focus on right side prior to EX. Patient Position: Left Sidelying - Heat/Cryotherapy Treatment: Hot Pack ([id number] to the lowback prior to US and EX. Patient in sitting. ) Interventions - Exercise/Activities/Manual Therapy Exercises/Activities: [id number] Assisted stretching of the bilateral hamstrings, SKTC, LTR, and piriformis. Isometric hip flexion and isometric hip add. Bridging. Wall slides and mini-squats. Patient education on safe lifting. Total minutes of Exercise: 15mins Manual Therapy: NA HOME EXERCISE PROGRAM: Stretching of the bilateral hamstrings, SKTC, and piriformis. Isometric hip add and isometric hip flexion. Green tband hip abd in hook-lying. Blue tband scap retraction. - Objective Findings Observations,measurements,etc.: Patient demos good body mechanics, lumbar ROM WFL, and is independent with HEP. - Charges Timed Code Treatment Minutes: 25mins Total Treatment Time: 45mins Procedures billed for this date of service:: HP, US, EX Assessment: Patient has met 7 of 8 treatment goals and is independent with HEP. She demos good body mechanics and understands safe lifting. She will continue HEP following discharge. Patient Education: Body/Joint mechanics, Home Exercise Program, Activity Modification, Education of Plan of Care Patient demonstrates compliance with HEP?: Yes Short Term Goals Goal #1: Tenderness to right SI region decreased to minimal. Goal to be met by: 05/09/17 Progress towards Goal:: Met Goal #2: SLR bilaterally to 45-50 degrees. Goal to be met by: 05/09/17 Progress towards Goal:: Met Goal #3: Lumbar AROM WFL's with minimal discomfort. Goal to be met by: 05/09/17 Progress towards Goal:: Met Goal #4: Pt independent and compliant with initial HEP. Goal to be met by: 05/09/17 Progress towards Goal:: Met Correction Goals Goal #1: Pt knows HEP and to continue ex's to maintain functional level at D/C. Goal to be met by: 06/09/17 Progress towards goal: Met Goal #2: Score on Oswestry LBP scale improved to 38. Goal to be met by: 06/09/17 Progress towards goal: Progressing Goal #3: Pt will tolerate all daily activities with minimal to no back/LE pain. Goal to be met by: 06/09/17 Progress towards goal: Met Goal #4: Pt able to sleep 6 hours without interruption from back pain. Goal to be met by: 06/09/17 Progress towards goal: Met Plan PLAN OF CARE EXPIRES ON:: 06/09/17 ORDER # VISITS AND/OR THROUGH DATE: 06/09/17 PLAN: Discharge with HEP.
--- NOTE | 2017-05-18 15:54 | RS.QUICKDC ---
Discharge from PT Date of Discharge: 05/18/17 Number of Visits: 6 Reason for Discharge: Patient progressed well and benefitted from treatment. She met 7 of 8 treatment goals and states she feels she may be able to return to work. Discharge at this time with HEP.
== END 2017-06-10 ==
PROVIDERS: ATTEND Nurse Practitioner
DX: M54.5 Low back pain (principal); G89.29 Other chronic pain

== ENCOUNTER 2017-06-16 06:52 | Emergency (ER) ==
[2017-06-16 07:02] VITALS: TEMP 98; BMI 41.8
[2017-06-16] MEDS ORDERED: STADOL IM STA (07:26)
--- NOTE | 2017-06-16 07:29 | ED.PDOC ---
General ED Provider: Dr. BERTHA BUTLER Chief Complaint: Back Pain Stated Complaint: patient is a 31 year old female who comse to the ER with tightness on the right back yesterday and then today became sharp radiating to the thighs biltearlly. States she has had similar symtoms in the past diagnosed with sciatica. states the sharp pain started when she tried to get out of bed this morning. Time Seen by Physician: 07:10 Mode of Arrival: Walk-In Information Source: Patient Exam Limitations: No limitations [facility] Nursing and Triage Documentation Reviewed and Agree: Yes Reviewed sepsis parameters & appropriate labs ordered?: Yes System Inflammatory Response Syndrome: Not Applicable Sepsis Protocol: For patient's 13 years and over: Temp is 96.8 and below OR 101 and greater Pulse >90 BPM Resp >20/minute Acutely Altered Mental Status Are patient's symptoms suggestive of a new infection, such as: -Pneumonia -Skin, Soft Tissue -Endocarditis -UTI -Bone, Joint Infection -Implantable Device -Acute Abdominal Infection -Wound Infection -Meningitis -Blood Stream Catheter Infection -Unknown System Inflammatory Response Syndrome: Not Applicable Musculoskeletal Complaint Exam - Back Pain Complaint/Exam Mechanism of Injury: Reports: No known trauma Onset/Duration: 1 day Symptoms Are: Still present Timing: Constant Initial Severity: Moderate Current Severity: Severe Location: Reports: Radiating (thighs ) Character: Reports: Sharp, Aching Aggravating: Reports: Movements Alleviating: Reports: None Associated Signs and Symptoms: Denies: Swelling, Redness, Bruising, Fever, Weakness, Numbness, Tingling, Abdominal pain, Flank pain, Bladder incontinence, Bowel incontinence, Weight loss, Pain with weight bearing TAD Risk Factors: Reports: None AAA Risk Factors: Reports: None Cauda Equina Risk Factors: Reports: None Epidural Abcess Risk Factors: Reports: None Related Surgical History: Reports: None Focal Tenderness: No Paraspinal Muscle Tenderness: Yes (mostly on the left ) Paraspinal Muscle Spasm: Yes (left ) Scoliosis: No Lordosis: No Kyphosis: No SLR Test: Right Negative, Left Negative Hip Motion Testing Pain: Right Negative, Left Negative Focal Weakness: Present: None Focal Sensory Loss: Present: None Gait: Present: Normal Back Picture: 1 - tenderness 2 - radiating Review of Systems - Review Of Systems Constitutional: Reports: No symptoms Eyes: Reports: No symptoms Ears, Nose, Mouth, Throat: Reports: No symptoms Respiratory: Reports: No symptoms Cardiac: Reports: No symptoms GI: Reports: No symptoms : Reports: No symptoms Musculoskeletal: Reports: Back pain, Muscle pain (thighs and back ) Skin: Reports: No symptoms Neurological: Reports: No symptoms Endocrine: Reports: No symptoms Hematologic/Lymphatic: Reports: No symptoms All Other Systems: Reviewed and Negative Past Medical History - Past Medical History Previously Healthy: Yes Endocrine: Reports: None Cardiovascular: Reports: None Respiratory: Reports: Asthma, Other (throat closes with tmp-sulf). Denies: Pneumonia (PLEURISY IN PAST) Hematological: Reports: Anemia Gastrointestinal: Reports: None Genitourinary: Reports: None Neuro/Psych: Reports: Anxiety, Depression Musculoskeletal: Reports: Other (SCOLIOSIS) Cancer: Reports: None Last Menstrual Period: 05/26/17 Other Pertinent Past Medical History: anemia asthma depr anx scol hives throat with tmpsulf - Surgical History General Surgical History: Reports: None - Family History Family History: Reports: Unknown - Social History Smoking Status: Former smoker Hx Substance Use: No Alcohol Screening: None Physical Exam - Physical Exam Appearance: Well-appearing, Obese Pain Distress: Severe Neck: Supple Respiratory: Airway patent, Breath sounds clear, Breath sounds equal, Respirations nonlabored Cardiovascular: RRR, Pulses normal, No rub, No murmur GI/: Soft, Nontender, No masses, Bowel sounds normal, No Organomegaly Musculoskeletal: ROM intact Skin: Warm, Dry Neurological: Sensation intact, Alert, Oriented Psychiatric: Anxious Critical Care Note - Critical Care Note Total Time (mins): 0 Comments: Patient was noted by nursing to have not waited for her ride but drove after being told not to drive after getting Narcotics. Pharmacy called to cancel prescription for [place] and Flexeril due to risk of driving while under the influence. Course - Course Orders, Labs, Meds: Orders Category Date Time Status Butorphanol Tartrate [Stadol] MEDS 06/16/17 07:26 Discontinued 2 mg IM ONCE STA Medications Discontinued Medications Generic Name Dose Route Start Last Admin Trade Name Freq PRN Reason Stop Dose Admin Butorphanol Tartrate 2 mg 06/16/17 07:26 06/16/17 07:37 Stadol IM 06/16/17 07:27 2 mg ONCE STA Administration Vital Signs: Temp Pulse Resp BP Pulse Ox 06/16/17 07:41 72 16 126/72 100 06/16/17 06:53 98.0 F 97 H 16 158/100 H 98 Departure - Departure Time of Disposition: 07:45 Disposition: HOME SELF-CARE Discharge Problem: Backache Low back pain Qualifiers: Chronicity: acute Back pain laterality: right Sciatica presence: with sciatica Sciatica laterality: sciatica of right side Qualified Code(s): M54.41 - Lumbago with sciatica, right side Instructions: Piriformis Syndrome (ED) Condition: Fair Pt referred to PMD for follow-up: Yes Additional Instructions: Take medications as prescribed Follow up with PCP in 3 days Rest and continue stretching Allergies/Adverse Reactions: Allergies aspirin Adverse Reaction (Verified 06/16/17 06:59) cat dander Adverse Reaction (Verified 06/16/17 06:59) diphenhydramine HCl [From Benadryl] Adverse Reaction (Verified 06/16/17 06:59) Anaphylaxis dog dander Adverse Reaction (Verified 06/16/17 06:59) mold Adverse Reaction (Verified 06/16/17 06:59) ragweed pollen Adverse Reaction (Verified 06/16/17 06:59) Sulfa (Sulfonamide Antibiotics) Adverse Reaction (Verified 06/16/17 06:59)
[2017-06-16 07:42] VITALS: BP 126/72
== END 2017-06-16 08:13 | disposition home or self-care (01) ==
LOC: ED 06:52
DX: M54.41 Lumbago with sciatica, right side (principal)
CPT/HCPCS: 96372; 99282

== ENCOUNTER 2017-07-26 09:35 | Emergency (ER) ==
[2017-07-26 09:40] VITALS: BP 196/107; TEMP 98.8; BMI 40.7
--- NOTE | 2017-07-26 10:13 | ED.PDOC ---
General ED Provider: Dr. MIGUELITO FLEMING Chief Complaint: Abdominal Pain Stated Complaint: Patient complains of sudden onset of acute pelvic pain located on Rt and suprapubic region. States no changes in health. Hx of Essure permanent control device placed 2 years ago. Admits to being sexually active. States LMP 2weeks ago and was scanty flow for 2-3 days which was unusual for her. Also admits to noting recent changes in her breasts which have become tender and full.Also notes some polyuria. Time Seen by Physician: 09:50 Mode of Arrival: Wheelchair Information Source: Patient [facility] Nursing and Triage Documentation Reviewed and Agree: Yes Reviewed sepsis parameters & appropriate labs ordered?: Yes System Inflammatory Response Syndrome: Not Applicable Sepsis Protocol: For patient's 13 years and over: Temp is 96.8 and below OR 101 and greater Pulse >90 BPM Resp >20/minute Acutely Altered Mental Status Are patient's symptoms suggestive of a new infection, such as: -Pneumonia -Skin, Soft Tissue -Endocarditis -UTI -Bone, Joint Infection -Implantable Device -Acute Abdominal Infection -Wound Infection -Meningitis -Blood Stream Catheter Infection -Unknown System Inflammatory Response Syndrome: Not Applicable GAME WARDEN Complaint Exam - Vaginal Bleeding Complaint/Exam Symptoms Are: Still present Timing: Constant Initial Severity: Severe Current Severity: Severe Alleviating: Reports: None Associated Signs and Symptoms: Reports: Dizziness, Lightheadedness, Abdominal pain, Generalized pain : 6 Para: 4 Hx Total # of Abortions (Spontaneous & Elective): 2 (spontaneous) Ectopic Risk Factors: Reports: Maternal age >30 (Currently has Essure Coils placed in Fallopian tubes) Review of Systems - Review Of Systems Constitutional: Reports: No symptoms Eyes: Reports: No symptoms Ears, Nose, Mouth, Throat: Reports: No symptoms Respiratory: Reports: No symptoms Cardiac: Reports: No symptoms GI: Reports: Abdominal pain (lower abdominal into RLQ/Suprapubic), Nausea : Reports: Pain Musculoskeletal: Reports: No symptoms Skin: Reports: No symptoms Neurological: Reports: No symptoms Endocrine: Reports: No symptoms Hematologic/Lymphatic: Reports: No symptoms All Other Systems: Reviewed and Negative Past Medical History - Past Medical History Previously Healthy: Yes Endocrine: Reports: None Cardiovascular: Reports: None Respiratory: Reports: Asthma, Other (throat closes with tmp-sulf). Denies: Pneumonia (PLEURISY IN PAST) Hematological: Reports: Anemia Gastrointestinal: Reports: None Genitourinary: Reports: None Neuro/Psych: Reports: Anxiety, Depression Musculoskeletal: Reports: Other (SCOLIOSIS) Cancer: Reports: None Last Menstrual Period: TWO WEEKS AGO (VERY LIGHT, ONLY THREE DAYS) Other Pertinent Past Medical History: anemia asthma depr anx scol hives throat with tmpsulf - Surgical History General Surgical History: Reports: None, Other (Essure Fallopian tube coils) - Family History Family History: Reports: Unknown - Social History Smoking Status: Former smoker Hx Substance Use: No Alcohol Screening: None - Immunizations Tetanus Shot up to Date: Yes Physical Exam - Physical Exam Appearance: Ill-appearing, Obese Ill-appearing: Severe Pain Distress: Severe Eyes: NOAM, EOMI ENT: Ears normal, Nose normal Neck: Supple Respiratory: Airway patent, Breath sounds clear, Breath sounds equal Cardiovascular: RRR, Pulses normal, No rub, No murmur GI/: Soft, Bowel sounds normal, Tender Musculoskeletal: Normal strength, ROM intact, No edema, No calf tenderness Skin: Warm, Dry, Normal color Neurological: Sensation intact, Motor intact, Cranial nerves intact, Alert, Oriented Psychiatric: Anxious Critical Care Note - Critical Care Note Total Time (mins): 0 Course - Course Hematology/Chemistry: 07/26/17 10:20 07/26/17 10:38 Orders, Labs, Meds: Lab Review 07/26/17 07/26/17 07/26/17 10:20 10:38 10:38 WBC 7.98 RBC 4.51 Hgb 12.7 Hct 37.3 MCV 82.7 MCH 28.2 MCHC 34.0 RDW Coeff of Carlie 13.7 Plt Count 274 Immature Gran % (Auto) 0.1 Neut % (Auto) 39.1 Lymph % (Auto) 47.0 Jackson % (Auto) 10.3 H Eos % (Auto) 3.1 Baso % (Auto) 0.4 Immature Gran # (Auto) 0.0 Neut # 3.1 Lymph # 3.8 H Jackson # 0.8 Eos # 0.3 Baso # 0.0 Sodium 138 Potassium 3.9 Chloride 107 Carbon Dioxide 23 Anion Gap 11.9 BUN 11 Creatinine 0.81 Estimated GFR (MDRD) 99.00 BUN/Creatinine Ratio 13.58 Glucose 89 Calcium 8.8 Total Bilirubin < 0.3 AST 16 ALT 24 Alkaline Phosphatase 87 Total Protein 6.8 Albumin 3.3 L Globulin 3.5 Albumin/Globulin Ratio 0.94 HCG, Quant < 1.20 Serum , Qual Blood Type B POSITIVE Antibody Screen Negative 07/26/17 10:38 WBC RBC Hgb Hct MCV MCH MCHC RDW Coeff of Carlie Plt Count Immature Gran % (Auto) Neut % (Auto) Lymph % (Auto) Jackson % (Auto) Eos % (Auto) Baso % (Auto) Immature Gran # (Auto) Neut # Lymph # Jackson # Eos # Baso # Sodium Potassium Chloride Carbon Dioxide Anion Gap BUN Creatinine Estimated GFR (MDRD) BUN/Creatinine Ratio Glucose Calcium Total Bilirubin AST ALT Alkaline Phosphatase Total Protein Albumin Globulin Albumin/Globulin Ratio HCG, Quant Serum , Qual Negative Blood Type Antibody Screen Orders Category Date Time Status Vital signs [ED VITAL SIGNS] EMERGENCY 07/26/17 10:10 Active Vital signs [ED VITAL SIGNS] .ONCE EMERGENCY 07/26/17 10:10 Active CBC W/ AUTO DIFF Stat LAB 07/26/17 10:20 Completed CMP [COMPREHENSIVE METABOLIC PANEL] Stat LAB 07/26/17 10:38 Completed HCG QUALITATIVE [SERUM ] Stat LAB 07/26/17 10:38 Completed HCG,QUANTITATIVE Stat LAB 07/26/17 10:38 Completed TYPE AND SCREEN Stat LAB 07/26/17 10:38 Completed Hydromorphone HCl [Dilaudid 1 mg/ml Syringe] MEDS 07/26/17 10:12 Discontinued 0.5 mg IVP ONCE STA Hydromorphone HCl [Dilaudid 1 mg/ml Syringe] MEDS 07/26/17 10:25 Discontinued 1 mg IVP ONCE STA Ondansetron HCl/Pf [Zofran 4 mg/2 ml] MEDS 07/26/17 10:12 Active 4 mg IVP Q6H PRN Sodium Chloride 0.9% [Sodium Chloride] 1,000 ml MEDS 07/26/17 10:04 Discontinued IV BOLUS ULTRASOUND PELVIS RUSSO VAGINAL/NONOB [U/S PELVIS RUSSO RADS 07/26/17 10:07 Completed VAGINAL/NON OB] Stat Medications Generic Name Dose Route Start Last Admin Trade Name Freq PRN Reason Stop Dose Admin Ondansetron HCl 4 mg 07/26/17 10:12 07/26/17 10:21 Zofran 4 Mg/2 Ml IVP 4 mg Q6H PRN Administration Nausea / Vomiting Discontinued Medications Generic Name Dose Route Start Last Admin Trade Name Spencerq PRN Reason Stop Dose Admin Hydromorphone HCl 0.5 mg 07/26/17 10:12 07/26/17 10:23 Dilaudid 1 Mg/Ml Syringe IVP 07/26/17 10:13 1 mg ONCE STA Administration Hydromorphone HCl 1 mg 07/26/17 10:25 07/26/17 10:29 Dilaudid 1 Mg/Ml Syringe IVP 07/26/17 10:26 Not Given ONCE STA Sodium Chloride 1,000 mls @ 500 mls/hr 07/26/17 10:04 07/26/17 10:16 Sodium Chloride IV 07/26/17 12:03 500 mls/hr BOLUS STA Administration Vital Signs: Temp Pulse Resp BP Pulse Ox 07/26/17 09:37 98.8 F 114 H 22 196/107 H 98 Departure - Departure Time of Disposition: 12:50 Disposition: HOME SELF-CARE Discharge Problem: Hemorrhagic cyst of left ovary Discharge Problem: (Ruled Out): Corpus luteum cyst rupture Instructions: Ovarian Cyst (ED), Ruptured Ovarian Cyst (ED) Condition: Good Pt referred to PMD for follow-up: Yes (Dr Shields [employer] in [facility] at 4 PM tomorrow (patient Called for apt)) IPMP verified?: No Additional Instructions: Refrain from working until follow up by GAME WARDEN Take Tylenol for relief of pain Return to ER if symptoms worsen Allergies/Adverse Reactions: Allergies aspirin Adverse Reaction (Verified 07/26/17 09:36) cat dander Adverse Reaction (Verified 07/26/17 09:36) diphenhydramine HCl [From Benadryl] Adverse Reaction (Verified 07/26/17 09:36) Anaphylaxis dog dander Adverse Reaction (Verified 07/26/17 09:36) mold Adverse Reaction (Verified 07/26/17 09:36) ragweed pollen Adverse Reaction (Verified 07/26/17 09:36) Sulfa (Sulfonamide Antibiotics) Adverse Reaction (Verified 07/26/17 09:36) Home Medications: Ambulatory Orders 1 [No Reported Medications] 07/26/17 Disposition Discussed With: Patient, Family
[2017-07-26] MEDS: SODIUM CHLORIDE 1,000 ML IV STA (10:16)
[2017-07-26] MEDS: ZOFRAN 4 MG/2 ML IVP PRN (10:21)
[2017-07-26] MEDS: DILAUDID 1 MG/ML SYRINGE IVP STA ×2 (10:23→10:29)
--- NOTE | 2017-07-26 11:36 | US ---
EXAM: PELVIC ULTRASOUND COMPLETE HISTORY: Severe pelvic pain FINDINGS: Ultrasound pelvis transvaginal. The uterus measured 8.0 x 3.5 x 4.6 cm. The myometrial is diffusely heterogeneous. There is a 1.7 x 1.6 x 1.3 cm possible myometrial mass which could represent fibroid. Endometrium was not seen. The right ovary measured 3.0 x 1.4 x 1.6 cm and the left ovary 5.2 x 3.6 x 3.7 cm. The right ovary de monstrated an echogenic round parenchymal mass measuring 2.3 x 2.3 x 2.4 cm which is suggestive of a hemorrhagic cyst. There was limited blood flow analysis of the ovaries with color flow Doppler noted in both organs alt alexander regarding spectral analysis, the right ovary revealed a single arterial tracing with a wave for m appearing arterial and high resistance in nature and the left ovary revealed a single wave form whi ch appeared to be arterial in nature with spectral broadening. There is a small amount of simple (anechoic) pelvic ascites. No obvious abnormal adnexal mass identi fied within limits of this transvaginal approach exam. IMPRESSION: 1. Probable hemorrhagic cyst of the left ovary measuring 2.4 cm. Small amount of simple (anechoic) p elvic ascites. No sonographic evidence of hemoperitoneum was presented on this exam. 2. Limited blood flow analysis of the ovaries although blood flow appeared to be present in both org ans. If ovarian torsion is clinically suspected, additional more detailed blood flow evaluation of t he ovaries by ultrasound is recommended. 3. No evidence of abnormal pelvic mass or ectopic gestation within limits of this transvaginal appro ach exam. 4. Possible small uterine fibroid. Heterogeneous myometrial tissue which may also indicate early fi broid involvement. 5. The endometrium was not seen.
== END 2017-07-26 13:59 | disposition home or self-care (01) ==
LOC: ED 09:35
DX: N83.202 Unspecified ovarian cyst, left side (principal)
CPT/HCPCS: 36415; 80053; 84702; 84703; 85025; 86850; 86900; 96361; 96374; 96375; 99284

== ENCOUNTER 2017-08-10 08:46 | Outpatient (CLI) ==
--- NOTE | 2017-08-10 11:09 | MAMMO ---
EXAM: Digital diagnostic mammogram with 3-D tomosynthesis and CAD HISTORY: Diffuse intermittent breast pain most pronounced on the right. COMPARISON: Breast ultrasound 04/21/2016 FINDINGS: CC and MLO images demonstrate scattered fibroglandular breast density. There is no suspici ous mass or calcification. There is no abnormality identified by the CAD. There is no focal abnorma lity to account for patient diffuse breast pain. IMPRESSION: No mammographic abnormality to account for patient's symptoms. Recommendations: If symptoms persist or worsen, follow-up diagnostic mammogram and potential ultrasou nd may be obtained. BIRADS category I: Negative
== END 2017-08-10 08:47 | disposition home or self-care (01) ==
LOC: RAD 08:46
PROVIDERS: ATTEND Nurse Practitioner Family
DX: N60.12 Diffuse cystic mastopathy of left breast (principal); N60.11 Diffuse cystic mastopathy of right breast; N64.4 Mastodynia

== ENCOUNTER 2018-03-09 04:23 | Emergency (ER) ==
[2018-03-09 04:38] VITALS: BP 119/83; TEMP 97.6; BMI 41.6
--- NOTE | 2018-03-09 05:13 | ED.PDOC ---
General ED Provider: Dr. MIGUELITO CUENCA-ER Chief Complaint: Back Pain Stated Complaint: i have sciatica and its flaring up Time Seen by Physician: 05:11 Mode of Arrival: Walk-In Information Source: Patient Exam Limitations: No limitations Primary Care Provider: KIRA HARRIS Nursing and Triage Documentation Reviewed and Agree: Yes Does patient meet sepsis criteria?: No System Inflammatory Response Syndrome: Not Applicable Sepsis Protocol: For patient's 13 years and over: Temp is 96.8 and below OR 101 and greater Pulse >90 BPM Resp >20/minute Acutely Altered Mental Status Are patient's symptoms suggestive of a new infection, such as: -Pneumonia -Skin, Soft Tissue -Endocarditis -UTI -Bone, Joint Infection -Implantable Device -Acute Abdominal Infection -Wound Infection -Meningitis -Blood Stream Catheter Infection -Unknown Musculoskeletal Complaint Exam - Back Pain Complaint/Exam Mechanism of Injury: Reports: No known trauma Onset/Duration: several ho0urs Symptoms Are: Still present Timing: Constant Initial Severity: Severe Location: Reports: Discrete Character: Reports: Dull, Aching, Stiffness Aggravating: Reports: Movements, Lifting, Bending, Walking Associated Signs and Symptoms: Denies: Swelling, Redness, Bruising, Fever, Weakness, Numbness, Tingling, Abdominal pain, Flank pain, Bladder incontinence, Bowel incontinence, Weight loss, Pain with weight bearing Related History: Reports: Previous back injury Epidural Abcess Risk Factors: Reports: None Related Surgical History: Reports: None Focal Tenderness: Yes Paraspinal Muscle Tenderness: Yes Paraspinal Muscle Spasm: No Scoliosis: No Lordosis: No Kyphosis: No SLR Test: Right Negative, Left Negative Hip Motion Testing Pain: Right Negative, Left Negative Focal Weakness: Present: None Focal Sensory Loss: Present: None Gait: Present: Abnormal Differential Diagnoses: Herniated Disk Review of Systems - Review Of Systems Constitutional: Reports: No symptoms Eyes: Reports: No symptoms Ears, Nose, Mouth, Throat: Reports: No symptoms Respiratory: Reports: No symptoms Cardiac: Reports: No symptoms GI: Reports: No symptoms : Reports: No symptoms Musculoskeletal: Reports: Back pain Skin: Reports: No symptoms Neurological: Reports: No symptoms Endocrine: Reports: No symptoms Hematologic/Lymphatic: Reports: No symptoms All Other Systems: Reviewed and Negative Past Medical History - Past Medical History Previously Healthy: Yes Endocrine: Reports: None Cardiovascular: Reports: None Respiratory: Reports: Asthma, Other (throat closes with tmp-sulf). Denies: Pneumonia (PLEURISY IN PAST) Hematological: Reports: Anemia Gastrointestinal: Reports: None Genitourinary: Reports: None Neuro/Psych: Reports: Anxiety, Depression Musculoskeletal: Reports: Back Pain, Other (SCOLIOSIS) Cancer: Reports: None Last Menstrual Period: PT HAS HAD A HYSTERECTOMY Other Pertinent Past Medical History: anemia asthma depr anx scol hives throat with tmpsulf - Surgical History General Surgical History: Reports: None, Other (Essure Fallopian tube coils) - Family History Family History: Reports: Unknown - Social History Smoking Status: Current every day smoker, Light tobacco smoker Hx Substance Use: No Alcohol Screening: Occasionally - Immunizations Tetanus Shot up to Date: Yes Physical Exam - Physical Exam Appearance: Well-appearing, No pain distress, Well-nourished Pain Distress: Moderate Eyes: NOAM, EOMI, Conjunctiva clear ENT: Ears normal, Nose normal, Oropharynx normal Neck: Supple Respiratory: Airway patent Cardiovascular: RRR, Pulses normal, No rub, No murmur GI/: Soft, Nontender, No masses, Bowel sounds normal, No Organomegaly Musculoskeletal: Limited ROM Skin: Warm Neurological: Sensation intact, Motor intact, Reflexes intact, Cranial nerves intact, Alert, Oriented Psychiatric: Affect appropriate, Mood appropriate Critical Care Note - Critical Care Note Total Time (mins): 0 Course - Course Orders, Labs, Meds: since she has had this before and hasnt fallen she agrees no xrays at this point but if not improved to ask dr gomez about xrays ?mri lumbar spine Vital Signs: Temp Pulse Resp BP Pulse Ox 03/09/18 04:24 97.6 F 90 20 119/83 98 Departure - Departure Time of Disposition: 05:14 Disposition: HOME SELF-CARE Discharge Problem: Sciatica Qualifiers: Laterality: right Qualified Code(s): M54.31 - Sciatica, right side Instructions: Sciatica (ED) Condition: Good Pt referred to PMD for follow-up: Yes IPMP verified?: No Additional Instructions: prednisone 30mg taper---norco 7.5mg q 4hrs prn pain #15---norflex 100mg q 12hrs prn pain #30---f/u wtih dr gomez next week for consideration of xrays and physical therapy if not improved--off work this weekend Allergies/Adverse Reactions: Allergies aspirin Adverse Reaction (Verified 03/09/18 04:38) cat dander Adverse Reaction (Verified 03/09/18 04:38) diphenhydramine HCl [From Benadryl] Adverse Reaction (Verified 03/09/18 04:38) Anaphylaxis dog dander Adverse Reaction (Verified 03/09/18 04:38) mold Adverse Reaction (Verified 03/09/18 04:38) ragweed pollen Adverse Reaction (Verified 03/09/18 04:38) Sulfa (Sulfonamide Antibiotics) Adverse Reaction (Verified 03/09/18 04:38) Home Medications: Ambulatory Orders 1 [No Reported Medications] 07/26/17 Disposition Discussed With: Patient
== END 2018-03-09 05:25 | disposition home or self-care (01) ==
LOC: ED 04:23
DX: M54.31 Sciatica, right side (principal); F17.210 Nicotine dependence, cigarettes, uncomplicated
CPT/HCPCS: 99282

== ENCOUNTER 2018-06-18 16:24 | Emergency (ER) ==
[2018-06-18 16:28] VITALS: BP 138/93; TEMP 97.9; BMI 41.1
--- NOTE | 2018-06-18 17:40 | ED.PDOC ---
General ED Provider: Dr. MIGUELITO FLEMING Chief Complaint: Respiratory Complaint Stated Complaint: Facial pain, lt ear ache and sinus congestion. Onset Time Seen by Physician: 16:20 Mode of Arrival: Walk-In Information Source: Patient Primary Care Provider: ENRRIQUE CEJA Nursing and Triage Documentation Reviewed and Agree: Yes Does patient meet sepsis criteria?: No System Inflammatory Response Syndrome: Not Applicable Sepsis Protocol: For patient's 13 years and over: Temp is 96.8 and below OR 101 and greater Pulse >90 BPM Resp >20/minute Acutely Altered Mental Status Are patient's symptoms suggestive of a new infection, such as: -Pneumonia -Skin, Soft Tissue -Endocarditis -UTI -Bone, Joint Infection -Implantable Device -Acute Abdominal Infection -Wound Infection -Meningitis -Blood Stream Catheter Infection -Unknown EENT Complaint Exam - Ear Complaint/Exam Onset/Duration: 3 days Symptoms Are: Still present Timing: Constant Initial Severity: Mild Current Severity: Moderate Character: Reports: Dull pain Aggravating: Reports: None Alleviating: Reports: None Associated Signs and Symptoms: Reports: Sore throat, Pain to external face. Denies: Ear trauma, Ear swelling, Discharge, Fever, Hearing loss, Bleeding, Headache, URI symptoms, Foreign body sensation, Rash, Pain to external ear Related History: Denies: Similar Episode Ear Surgical History: None Vesicles to External Pinna: No Vesicles to Tragus: No TMJ Tenderness: Left Mastoid Tenderness: None Tragal Tenderness: None Material in Canal: Absent: Cerumen Tympanic Membrane: Erythema Differential Diagnoses: Otitis Media, Other (sinusitis) Review of Systems - Review Of Systems Constitutional: Reports: No symptoms Eyes: Reports: No symptoms Ears, Nose, Mouth, Throat: Reports: Ear pain Respiratory: Reports: Cough Cardiac: Reports: No symptoms GI: Reports: No symptoms : Reports: No symptoms Musculoskeletal: Reports: No symptoms Skin: Reports: No symptoms Neurological: Reports: No symptoms Endocrine: Reports: No symptoms Hematologic/Lymphatic: Reports: No symptoms All Other Systems: Reviewed and Negative Past Medical History - Past Medical History Previously Healthy: Yes Endocrine: Reports: None Cardiovascular: Reports: None Respiratory: Reports: Asthma, Other (throat closes with tmp-sulf). Denies: Pneumonia (PLEURISY IN PAST) Hematological: Reports: Anemia Gastrointestinal: Reports: None Genitourinary: Reports: None Neuro/Psych: Reports: Anxiety, Depression Musculoskeletal: Reports: Back Pain, Other (SCOLIOSIS) Cancer: Reports: None Last Menstrual Period: none Other Pertinent Past Medical History: anemia asthma depr anx scol hives throat with tmpsulf - Surgical History General Surgical History: Reports: None, Other (Essure Fallopian tube coils) - Family History Family History: Reports: Unknown - Social History Smoking Status: Current every day smoker, Light tobacco smoker Hx Substance Use: No Alcohol Screening: Occasionally Physical Exam - Physical Exam Appearance: Well-appearing, No pain distress, Well-nourished Eyes: NOAM, EOMI, Conjunctiva clear ENT: Ears normal, Nose normal, Oropharynx normal Respiratory: Airway patent, Breath sounds clear, Breath sounds equal, Respirations nonlabored Cardiovascular: RRR, Pulses normal, No rub, No murmur GI/: Soft, Nontender, No masses, Bowel sounds normal, No Organomegaly Musculoskeletal: Normal strength, ROM intact, No edema, No calf tenderness Skin: Warm, Dry, Normal color Neurological: Sensation intact, Motor intact, Reflexes intact, Cranial nerves intact, Alert, Oriented Psychiatric: Affect appropriate, Mood appropriate Critical Care Note - Critical Care Note Total Time (mins): 0 Course - Course Orders, Labs, Meds: Lab Review 06/18/18 16:35 Influ A Molecular Assay Negative by naat Influ B Molecular Assay Negative by naat Orders Category Date Time Status FLU A/B MOLECULAR Stat LAB 06/18/18 16:35 Completed RAPID STREP SCREEN [MOLECULAR GROUP A STREP] Stat LAB 06/18/18 16:35 Completed Vital Signs: Temp Pulse Resp BP Pulse Ox 06/18/18 16:25 97.9 F 91 H 20 138/93 H 99 Departure - Departure Time of Disposition: 17:40 Disposition: HOME SELF-CARE Discharge Problem: Sinusitis, Left otitis media Instructions: Sinusitis (ED), Upper Respiratory Infection (ED), Serous Otitis Media (ED) Condition: Stable Pt referred to PMD for follow-up: Yes IPMP verified?: No Additional Instructions: Take meds as directed Force fluids Off work for 24-48 hrs take Tylenol for pain Prescriptions: Amoxicillin/Potassium Clav [Augmentin 875-125 mg Tab] 1 tab PO Q12HR #20 tablet Prednisone 1 tab PO DAILY #20 tablet Allergies/Adverse Reactions: Allergies aspirin Adverse Reaction (Verified 06/18/18 16:28) cat dander Adverse Reaction (Verified 06/18/18 16:28) diphenhydramine HCl [From Benadryl] Adverse Reaction (Verified 06/18/18 16:28) Anaphylaxis dog dander Adverse Reaction (Verified 06/18/18 16:28) mold Adverse Reaction (Verified 06/18/18 16:28) ragweed pollen Adverse Reaction (Verified 06/18/18 16:28) Sulfa (Sulfonamide Antibiotics) Adverse Reaction (Verified 06/18/18 16:28) Home Medications: Ambulatory Orders Amoxicillin/Potassium Clav [Augmentin 875-125 mg Tab] 1 tab PO Q12HR #20 tablet 06/18/18 Prednisone 1 tab PO DAILY #20 tablet 06/18/18 Disposition Discussed With: Patient
== END 2018-06-18 17:47 | disposition home or self-care (01) ==
LOC: ED 16:24
DX: J32.9 Chronic sinusitis, unspecified (principal); H66.92 Otitis media, unspecified, left ear; F17.210 Nicotine dependence, cigarettes, uncomplicated
CPT/HCPCS: 87502; 87651; 99283

== ENCOUNTER 2018-07-23 15:39 | Outpatient (CLI) | END 2018-07-23 15:40 | disposition home or self-care (01) | LOC: RHC-LAB 15:39 → FCC-LAB 15:40 | PROVIDERS: ATTEND Nurse Practitioner Family | DX: R05 Cough (principal) | CPT/HCPCS: 87502 ==

== ENCOUNTER 2018-08-19 10:29 | Outpatient (CLI) | END 2018-08-19 10:30 | disposition home or self-care (01) | LOC: RHC-LAB 10:29 → FCC-LAB 10:30 | PROVIDERS: ATTEND Family Medicine | DX: R53.82 Chronic fatigue, unspecified (principal); Z68.41 Body mass index [BMI] 40.0-44.9, adult | CPT/HCPCS: 36415; 80053; 80061; 84443; 85025 ==

== ENCOUNTER 2018-09-12 15:29 | Emergency (ER) ==
[2018-09-12 15:43] VITALS: BP 138/97; TEMP 100.5; BMI 41.9
--- NOTE | 2018-09-12 16:30 | ED.PDOC ---
General ED Provider: Dr. MIGUELITO FLEMING Chief Complaint: Respiratory Complaint Stated Complaint: Flu-like symptoms. Onset x 2 days. Associated chills, fever, cough with "yellowish brown" sputum and nasal drainage. Chest feels tight. Sore throat. Ears popping. Has taken mucous relief x 2 tabs testerday. No other OTC med taken. Body aches. Had appt with clinic with QUIANA Reese. but was referred to ER from his office for evaluation and treatement. Time Seen by Physician: 15:45 Mode of Arrival: Wheelchair Information Source: Patient Exam Limitations: No limitations Primary Care Provider: INOCENTE REDDY Seen Within Last 72 Hours for Same Complaint By: Clinic Nursing and Triage Documentation Reviewed and Agree: Yes Does patient meet sepsis criteria?: No System Inflammatory Response Syndrome: Not Applicable Sepsis Protocol: For patient's 13 years and over: Temp is 96.8 and below OR 101 and greater Pulse >90 BPM Resp >20/minute Acutely Altered Mental Status Are patient's symptoms suggestive of a new infection, such as: -Pneumonia -Skin, Soft Tissue -Endocarditis -UTI -Bone, Joint Infection -Implantable Device -Acute Abdominal Infection -Wound Infection -Meningitis -Blood Stream Catheter Infection -Unknown Respiratory Complaint Exam - Respiratory Complaint/Exam Onset/Duration: 2 days Symptoms Are: Still present Timing: Constant Initial Severity: Moderate Current Severity: Moderate Location: Nose, Throat, Chest Character: Reports: Productive cough Aggravating: Reports: Weather, Deep breaths, Recumbent position Alleviating: Reports: Upright position Associated Signs and Symptoms: Reports: Pleuritic chest pain, Nasal congestion Related History: Reports: Similar episode History of Healthcare-Acquired Pneumonia: No Related Surgical History: Reports: None Pulmonary Embolism Risk Factors: None Cardiac Risk Factors: Reports: None Pseudomonas Risk Factors: Reports: None Tuberculosis Risk Factors: Reports: None Home Oxygen Use: No Recent Stress Test: No Recent Echo/LV Function: No Current Antibiotic Use: No Current Asthma Medication Use: No Respiratory Distress: None Inadequate Respiratory Effort: No Dysphagia Present: No Stridor Present: No JVD Present: No Accessory Muscle Use: No Retractions: Not Present Diminished Breath Sounds: No Sinus Tenderness: None Grunting Respirations: No Kussmaul Respirations: No Differential Diagnoses: Asthma, URI, Influenza Review of Systems - Review Of Systems Constitutional: Reports: No symptoms, Chills, Fever Eyes: Reports: No symptoms Ears, Nose, Mouth, Throat: Reports: No symptoms, Throat pain Respiratory: Reports: Cough Cardiac: Reports: No symptoms GI: Reports: No symptoms : Reports: No symptoms Musculoskeletal: Reports: No symptoms Skin: Reports: No symptoms Neurological: Reports: No symptoms Endocrine: Reports: No symptoms Hematologic/Lymphatic: Reports: No symptoms All Other Systems: Reviewed and Negative Past Medical History - Past Medical History Previously Healthy: Yes Endocrine: Reports: None Cardiovascular: Reports: None Respiratory: Reports: Asthma, Other (throat closes with tmp-sulf). Denies: Pneumonia (PLEURISY IN PAST) Hematological: Reports: Anemia Gastrointestinal: Reports: None Genitourinary: Reports: None Neuro/Psych: Reports: Anxiety, Depression Musculoskeletal: Reports: Back Pain, Other (SCOLIOSIS) Cancer: Reports: None Last Menstrual Period: unknown Other Pertinent Past Medical History: anemia asthma depr anx scol hives throat with tmpsulf - Surgical History General Surgical History: Reports: None, Other (Essure Fallopian tube coils) - Family History Family History: Reports: Unknown - Social History Smoking Status: Current every day smoker, Heavy tobacco smoker Hx Substance Use: No Alcohol Screening: Occasionally Physical Exam - Physical Exam Appearance: Well-appearing, Ill-appearing, No pain distress, Well-nourished Ill-appearing: Mild Pain Distress: None Eyes: NOAM, EOMI, Conjunctiva clear ENT: Ears normal, Nose normal, Oropharynx normal Neck: Supple Respiratory: Airway patent, Breath sounds clear, Breath sounds equal, Respirations nonlabored, Wheezes Cardiovascular: RRR, Pulses normal, No rub, No murmur GI/: Soft, Nontender, No masses, Bowel sounds normal, No Organomegaly Musculoskeletal: Normal strength, ROM intact, No edema, No calf tenderness Skin: Warm, Dry, Normal color Neurological: Sensation intact, Motor intact, Reflexes intact, Cranial nerves intact, Alert, Oriented Psychiatric: Affect appropriate, Mood appropriate Critical Care Note - Critical Care Note Total Time (mins): 60 Course - Course Hematology/Chemistry: 09/12/18 16:55 09/12/18 16:55 Orders, Labs, Meds: Lab Review 09/12/18 09/12/18 09/12/18 15:10 16:55 16:55 WBC 9.18 RBC 4.99 Hgb 14.2 Hct 41.4 MCV 83.0 MCH 28.5 MCHC 34.3 RDW Coeff of Carlie 13.8 Plt Count 273 Immature Gran % (Auto) 0.1 Neut % (Auto) 46.6 Lymph % (Auto) 36.5 Gage % (Auto) 12.1 H Eos % (Auto) 4.4 Baso % (Auto) 0.3 Immature Gran # (Auto) 0.0 Neut # (Auto) 4.3 Lymph # (Auto) 3.4 Gage # (Auto) 1.1 Eos # (Auto) 0.4 Baso # (Auto) 0.0 Sodium 137.5 Potassium 3.64 Chloride 103.1 Carbon Dioxide 24.1 Anion Gap 13.94 BUN 9.4 Creatinine 0.93 Estimated GFR (MDRD) 84.00 BUN/Creatinine Ratio 10.10 Glucose 85.5 Lactic Acid Calcium 9.18 Total Bilirubin 0.34 AST 22.7 ALT 26.3 Alkaline Phosphatase 91.1 Total Protein 7.56 Albumin 4.76 Globulin 2.80 Albumin/Globulin Ratio 1.70 Procalcitonin Urine Color Urine Clarity Urine pH Ur Specific [place] Urine Protein Urine Glucose (UA) Urine Ketones Urine Blood Urine Nitrite Urine Bilirubin Urine Urobilinogen Ur Leukocyte Esterase Urine Microscopic RBC Ur Squamous Epith Cells Influ A Molecular Assay Negative by naat Influ B Molecular Assay Negative by naat 09/12/18 09/12/18 09/12/18 16:55 16:55 16:58 WBC RBC Hgb Hct MCV MCH MCHC RDW Coeff of Carlie Plt Count Immature Gran % (Auto) Neut % (Auto) Lymph % (Auto) Gage % (Auto) Eos % (Auto) Baso % (Auto) Immature Gran # (Auto) Neut # (Auto) Lymph # (Auto) Gage # (Auto) Eos # (Auto) Baso # (Auto) Sodium Potassium Chloride Carbon Dioxide Anion Gap BUN Creatinine Estimated GFR (MDRD) BUN/Creatinine Ratio Glucose Lactic Acid 1.19 Calcium Total Bilirubin AST ALT Alkaline Phosphatase Total Protein Albumin Globulin Albumin/Globulin Ratio Procalcitonin < 0.05 Urine Color Yellow Urine Clarity Clear Urine pH 6.0 Ur Specific [place] 1.015 Urine Protein Negative Urine Glucose (UA) Negative Urine Ketones Negative Urine Blood Trace-intact Urine Nitrite Negative Urine Bilirubin Negative Urine Urobilinogen 0.2 Ur Leukocyte Esterase Negative Urine Microscopic RBC 0-2 Ur Squamous Epith Cells 50-100 Influ A Molecular Assay Influ B Molecular Assay Orders Category Date Time Status EKG-(ED ONLY) Stat CARDIO 09/12/18 17:56 Completed NEBULIZER TREATMENT Stat CARDIO 09/12/18 16:35 Completed NEBULIZER TREATMENT Stat CARDIO 09/12/18 19:18 Completed NEBULIZER TREATMENT Stat CARDIO 09/12/18 19:19 Completed BLOOD CULTURE (ED ONLY) Stat LAB 09/12/18 16:55 Results CBC W/ AUTO DIFF Stat LAB 09/12/18 16:55 Completed CMP [COMPREHENSIVE METABOLIC PANEL] Stat LAB 09/12/18 16:55 Completed FLU A & B MOLECULAR [FLU A/B MOLECULAR] Stat LAB 09/12/18 15:10 Completed LACTIC ACID Stat LAB 09/12/18 16:55 Completed PROCALCITONIN Stat LAB 09/12/18 16:55 Completed RAPID STREP SCREEN [MOLECULAR GROUP A STREP] Stat LAB 09/12/18 15:10 Completed UA [URINALYSIS C & S IF INDICATED] Stat LAB 09/12/18 16:58 Completed Albuterol Sulfate 0.083% Neb [Albuterol 0.083% Neb] MEDS 09/12/18 19:18 Discontinued 1 vial NEB ONCE STA Budesonide [Pulmicort 0.5 mg/2 ml] MEDS 09/12/18 19:19 Discontinued 1 vial NEB ONCE STA Dexamethasone 4 mg/ml Inj [Decadron 4 mg/ml Sdv] MEDS 09/12/18 18:57 Discontinued 4 mg IM ONCE STA Ipratropium/Albuterol Neb [Duoneb] MEDS 09/12/18 16:35 Discontinued 1 vial NEB ONCE STA CHEST, 2 VIEWS PA & LAT Stat RADS 09/12/18 16:29 Completed Medications Discontinued Medications Generic Name Dose Route Start Last Admin Trade Name Freq PRN Reason Stop Dose Admin Albuterol Sulfate 1 vial 09/12/18 19:18 09/12/18 19:25 Albuterol 0.083% Neb NEB 09/12/18 19:19 1 vial ONCE STA Administration Albuterol/Ipratropium 1 vial 09/12/18 16:35 09/12/18 16:45 Duoneb NEB 09/12/18 16:36 1 vial ONCE STA Administration Budesonide 1 vial 09/12/18 19:19 09/12/18 19:25 Pulmicort 0.5 Mg/2 Ml NEB 09/12/18 19:20 1 vial ONCE STA Administration Dexamethasone Sodium Phosphate 4 mg 09/12/18 18:57 09/12/18 19:03 Decadron 4 Mg/Ml Sdv IM 09/12/18 18:58 4 mg ONCE STA Administration Vital Signs: Temp Pulse Resp BP Pulse Ox 09/12/18 15:29 100.5 F H 109 H 20 138/97 H 98 Departure - Departure Time of Disposition: 18:40 Disposition: HOME SELF-CARE Discharge Problem: Acute URI, Asthma Instructions: Asthma (ED), Upper Respiratory Infection (ED) Condition: Good Pt referred to PMD for follow-up: Yes (1 week) IPMP verified?: No Additional Instructions: Use meds as directed Prescriptions: Albuterol Sulfate [Proventil Hfa] 6.7 gm IH Q6HR PRN 30 Days #1 hfa.aer.ad PRN Reason: Chest wheezing Azithromycin [Zithromax] 250 mg PO DAILY #6 tablet Methylprednisolone [Medrol Dosepak] 4 mg PO DAILY #1 tab.ds.pk Allergies/Adverse Reactions: Allergies aspirin Adverse Reaction (Verified 09/12/18 15:44) cat dander Adverse Reaction (Verified 09/12/18 15:44) diphenhydramine HCl [From Benadryl] Adverse Reaction (Verified 09/12/18 15:44) Anaphylaxis dog dander Adverse Reaction (Verified 09/12/18 15:44) mold Adverse Reaction (Verified 09/12/18 15:44) ragweed pollen Adverse Reaction (Verified 09/12/18 15:44) Sulfa (Sulfonamide Antibiotics) Adverse Reaction (Verified 09/12/18 15:44) Home Medications: Ambulatory Orders Bacillus Coagulans [Probiotic] 1 each PO DAILY 08/19/18 Albuterol Sulfate [Proventil Hfa] 6.7 gm IH Q6HR PRN 30 Days #1 hfa.aer.ad 09/12 Azithromycin [Zithromax] 250 mg PO DAILY #6 tablet 09/12/18 Methylprednisolone [Medrol Dosepak] 4 mg PO DAILY #1 tab.ds.pk 09/12/18 Disposition Discussed With: Patient Additional Information: Just prior to discharge developed recurrent bronchospasm Treatment ordered
[2018-09-12] MEDS ORDERED: DUONEB NEB STA (16:35)
[2018-09-12] MEDS ORDERED: DECADRON 4 MG/ML SDV IM STA (18:57)
[2018-09-12] MEDS ORDERED: ALBUTEROL 0.083% NEB NEB STA (19:18)
[2018-09-12] MEDS ORDERED: PULMICORT 0.5 MG/2 ML NEB STA (19:19)
--- NOTE | 2018-09-13 07:05 | DI ---
EXAM: CHEST FRONTAL AND LATERAL VIEWS HISTORY: Shortness of breath, chest pain. COMPARISON: 04/15/2016 FINDINGS: Heart size and mediastinal contour remain within normal limits. No acute infiltrates. Normal vascularity with no pleural fluid or pneumothorax. The bony thorax has no acute finding. IMPRESSION: No acute process.
[2018-09-13] MEDS ORDERED: DECADRON 4 MG/ML SDV IM SCH (09:00)
== END 2018-09-12 19:55 | disposition home or self-care (01) ==
LOC: ED 15:29
DX: J06.9 Acute upper respiratory infection, unspecified (principal); J45.909 Unspecified asthma, uncomplicated; F17.210 Nicotine dependence, cigarettes, uncomplicated
CPT/HCPCS: 36415; 80053; 81001; 83605; 84145; 85025; 87040; 87502; 87651; 93005; 93010; 94640; 96372; 99283

== ENCOUNTER 2018-11-26 21:52 | Emergency (ER) ==
[2018-11-26 22:04] VITALS: BP 143/99; TEMP 99.5; BMI 41.8
[2018-11-26] MEDS ORDERED: ED AFTER HOURS SUPPLY MED SENT HOME PO ONE (22:41)
[2018-11-26] MEDS ORDERED: SOLU-MEDROL 125 MG IM STA (22:41)
--- NOTE | 2018-11-26 22:44 | ED.PDOC ---
General ED Provider: Dr. BERTHA BUTLER Chief Complaint: Extremity Pain/Injury Stated Complaint: Patient complains of right arm tingling radiating to the right shoulder. 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 Not sure if she pulled it. Pain is severe. Time Seen by Physician: 22:43 Mode of Arrival: Walk-In Information Source: Patient Primary Care Provider: ENRRIQUE CEJA Nursing and Triage Documentation Reviewed and Agree: Yes Does patient meet sepsis criteria?: No System Inflammatory Response Syndrome: Not Applicable Sepsis Protocol: For patient's 13 years and over: Temp is 96.8 and below OR 101 and greater Pulse >90 BPM Resp >20/minute Acutely Altered Mental Status Are patient's symptoms suggestive of a new infection, such as: -Pneumonia -Skin, Soft Tissue -Endocarditis -UTI -Bone, Joint Infection -Implantable Device -Acute Abdominal Infection -Wound Infection -Meningitis -Blood Stream Catheter Infection -Unknown Review of Systems - Review Of Systems Constitutional: Reports: No symptoms Eyes: Reports: No symptoms Ears, Nose, Mouth, Throat: Reports: No symptoms Respiratory: Reports: No symptoms Cardiac: Reports: No symptoms GI: Reports: No symptoms : Reports: No symptoms Musculoskeletal: Reports: Back pain (rigth shoulder area ), Joint pain Skin: Reports: No symptoms Neurological: Reports: Anxiety Endocrine: Reports: No symptoms Hematologic/Lymphatic: Reports: No symptoms All Other Systems: Reviewed and Negative Past Medical History - Past Medical History Previously Healthy: Yes Endocrine: Reports: None Cardiovascular: Reports: None Respiratory: Reports: Asthma, Other (throat closes with tmp-sulf). Denies: Pneumonia (PLEURISY IN PAST) Hematological: Reports: Anemia Gastrointestinal: Reports: None Genitourinary: Reports: None Neuro/Psych: Reports: Anxiety, Depression Musculoskeletal: Reports: Back Pain, Other (SCOLIOSIS) Cancer: Reports: None Last Menstrual Period: 11/26 Other Pertinent Past Medical History: anemia asthma depr anx scol hives throat with tmpsulf - Surgical History General Surgical History: Reports: None, Other (Essure Fallopian tube coils) - Family History Family History: Reports: Unknown - Social History Smoking Status: Current every day smoker, Heavy tobacco smoker Hx Substance Use: Yes (marijuana) Alcohol Screening: Occasionally - Immunizations Tetanus Shot up to Date: Yes Physical Exam - Physical Exam Appearance: Obese Pain Distress: Severe Eyes: NOAM, EOMI, Conjunctiva clear Neck: Supple Respiratory: Airway patent, Breath sounds clear, Breath sounds equal, Respirations nonlabored Cardiovascular: RRR, Pulses normal, No rub, No murmur GI/: Soft, Nontender, No masses, Bowel sounds normal, No Organomegaly Musculoskeletal: Limited ROM (right shoulder ) Skin: Warm, Dry, Normal color Neurological: Sensation intact, Motor intact, Reflexes intact, Cranial nerves intact, Alert, Oriented Psychiatric: Anxious Critical Care Note - Critical Care Note Total Time (mins): 0 Course - Course Orders, Labs, Meds: Orders Category Date Time Status Ed After Hour Supply Med [Ed After Hours Supply Med MEDS 11/26/18 22:41 Discontinued Sent Home] 1 each PO ONCE ONE Hydrocodone Bit/Acetaminophen [[place] 5-325] MEDS 11/26/18 23:42 Discontinued 4 tab .ROUTE .STK-MED ONE Methylprednisolone Sod Succ/Pf [Solu-Medrol 125 mg] MEDS 11/26/18 22:41 Discontinued 125 mg IM ONCE STA Medications Discontinued Medications Generic Name Dose Route Start Last Admin Trade Name Chris PRN Reason Stop Dose Admin Methylprednisolone Sodium Succinate 125 mg 11/26/18 22:41 11/26/18 23:00 Solu-Medrol 125 Mg IM 11/26/18 22:42 125 mg ONCE STA Administration Miscellaneous Information 1 each 11/26/18 22:41 11/26/18 23:44 Ed After Hours Supply Med Sent Home PO 11/26/18 22:42 1 each ONCE ONE Administration Protocol Vital Signs: Temp Pulse Resp BP Pulse Ox 11/26/18 21:53 99.5 F 102 H 20 143/99 H 98 Departure - Departure Time of Disposition: 23:46 Disposition: HOME SELF-CARE Discharge Problem: Sprain of shoulder, right Qualifiers: Encounter type: initial encounter Shoulder sprain type: unspecified sprain Qualified Code(s): S43.401A - Unspecified sprain of right shoulder joint, initial encounter Pinched nerve in shoulder Qualifiers: Laterality: right Qualified Code(s): G56.81 - Other specified mononeuropathies of right upper limb Instructions: Shoulder Sprain (ED), Cervical Radiculopathy (ED) Condition: Fair Pt referred to PMD for follow-up: Yes IPMP verified?: No Additional Instructions: Take medications as prescribed Follow up with PCP in 3 days Prescriptions: Hydrocodone Bit/Acetaminophen [[place] 5-325] 1 each PO Q6HR PRN #15 tablet PRN Reason: severe pain Allergies/Adverse Reactions: Allergies aspirin Adverse Reaction (Verified 11/26/18 22:05) cat dander Adverse Reaction (Verified 11/26/18 22:05) diphenhydramine HCl [From Benadryl] Adverse Reaction (Verified 11/26/18 22:05) Anaphylaxis dog dander Adverse Reaction (Verified 11/26/18 22:05) mold Adverse Reaction (Verified 11/26/18 22:05) ragweed pollen Adverse Reaction (Verified 11/26/18 22:05) Sulfa (Sulfonamide Antibiotics) Adverse Reaction (Verified 11/26/18 22:05) Home Medications: Ambulatory Orders Hydrocodone Bit/Acetaminophen [[place] 5-325] 1 each PO Q6HR PRN #15 tablet Disposition Discussed With: Patient
[2018-11-26] MEDS ORDERED: NORCO 5-325 ONE ×2 (23:42→23:44)
== END 2018-11-26 23:56 | disposition home or self-care (01) ==
LOC: ED 21:52
DX: S43.401A Unspecified sprain of right shoulder joint, initial encounter (principal); G56.81 Other specified mononeuropathies of right upper limb; X50.1XXA Overexertion from prolonged static or awkward postures, initial encounter; F17.210 Nicotine dependence, cigarettes, uncomplicated
CPT/HCPCS: 96372; 99282